=== PATIENT | male | born 1945 | race Caucasian/White ===

== ENCOUNTER 2017-06-17 17:07 | Inpatient (IN) | payer MEDICARE ==
[2017-06-17] MEDS ORDERED: Sodium Chloride 0.9% 1,000 ML IV STA ×2 (17:45→19:11)
[2017-06-17 18:09] LABS: VENOUS BLOOD GAS PCO2 40 mmHg (40-60)
[2017-06-17 18:25] LABS: BASO % 0.1 % (0.0-2.0); HEMATOCRIT 36.2 % (35.0-51.0); LYMPH # 0.7 K/uL (1.0-4.3); LYMPH % 4.7 % (20.0-40.0); MEAN CORPUSCULAR HEMOGLOBIN 30.1 pg (27.0-31.0); MEAN CORPUSCULAR HGB CONC 33.8 g/dL (33.0-37.0); MEAN PLATELET VOLUME 10.5 fl (7.2-11.7); MONO # 1.4 K/uL (0.0-0.8); MONO % 9.4 % (0.0-10.0); NEUT # 12.6 K/uL (1.8-7.0); NEUT % 85.8 % (50.0-75.0); PLATELET COUNT 130 K/uL (130-400); RED CELL DISTRIBUTION WIDTH 12.4 % (11.5-14.5); WHITE BLOOD COUNT 14.7 K/uL (4.8-10.8)
[2017-06-17] MEDS ORDERED: Azithromycin 500 MG in Sodium Chloride 0.9% 250 ML IVPB STA (18:26)
[2017-06-17] MEDS ORDERED: Insulin Regular 100 units/ml IV STA ×2 (18:26→19:04)
[2017-06-17] MEDS ORDERED: Sodium Chloride 3% for Inhalation 4 ML VIAL.NEB IH PRN (18:29)
[2017-06-17] MEDS ORDERED: Albuterol-Ipratrop 3 mg / 0.5 (3 ml) UD INH STA (18:30)
[2017-06-17 18:39] LABS: ALB/GLOB RATIO 1.2 (1.0-2.1); ALKALINE PHOSPHATASE 120 U/L (38-126); ALT/SGPT 65 U/L (21-72); AST/SGOT 68 U/L (17-59); BILIRUBIN,TOTAL 1.7 mg/dl (0.2-1.3); BLOOD UREA NITROGEN 15 mg/dl (9-20); CALCIUM 8.2 mg/dL (8.4-10.2); CARBON DIOXIDE 24 mmol/L (22-30); CHLORIDE 93 mmol/L (98-107); GFR AFRICAN-AMERICAN > 60; POTASSIUM 4.2 MMOL/L (3.6-5.0); SODIUM 131 mmol/l (132-148); TOTAL PROTEIN 7.1 G/DL (6.3-8.2)
--- NOTE | 2017-06-17 18:51 | ED PDOC ---
HPI: CCC, URI, Sore Throat Time Seen by Provider: 06/17/17 17:30 Chief Complaint (Nursing): GI Problem Chief Complaint (Provider): Coughing and Difficulty Breathing History Per: Patient History/Exam Limitations: no limitations Onset/Duration Of Symptoms: Days (2 days) Current Symptoms Are (Timing): Still Present Associated Symptoms: Fever, Vomiting Additional Complaint(s): Patient is a 72 y/o male with a past medical history of hypertension, diabetes, and hypercholesterolemia who presents to the ED complaining of coughing and difficulty breathing with associated fever for 2 days. Patient reports that the cough has been persistent today, and that he experiences difficulty breathing when coughing. He also notes coughing up phlegm and that he vomits occasionally when coughing a lot. He reports associated chest pain but denies any recent trauma or hospitalization. Patient claims he has not taken any medication for the symptoms. PCP: Dr. Bradshaw, [place] Past Medical History Reviewed: Historical Data, Nursing Documentation, Vital Signs Vital Signs: Last Vital Signs Temp 101.3 F H 06/17/17 18:15 Pulse 105 H 06/17/17 19:39 Resp 18 06/17/17 17:13 BP 127/61 06/17/17 17:13 Pulse Ox 94 L 06/17/17 19:39 - Medical History PMH: Diabetes, HTN, Hypercholesterolemia - Surgical History Surgical History: No Surg Hx - Family History Family History: States: No Known Family Hx - Social History Current smoker - smoking cessation education provided: No Alcohol: None Drugs: Denies - Home Medications Home Medications: Ambulatory Orders Medication Instructions Recorded Dicyclomine [Bentyl] 20 mg PO BID PRN 06/17/17 Glimepiride [amaRYL] 4 mg PO BID 06/17/17 Lisinopril [Zestril] 2.5 mg PO DAILY 06/17/17 MetFORMIN [glucoPHAGE] 1,000 mg PO BID 06/17/17 Simvastatin [Simvastatin] 10 mg PO DAILY 06/17/17 - Allergies Allergies/Adverse Reactions: Allergies Allergy/AdvReac Type Severity Reaction Status Date / Time No Known Allergies Allergy Verified 06/17/17 17:13 Review of Systems ROS Statement: Except As Marked, All Systems Reviewed And Found Negative Constitutional: Positive for: Fever Cardiovascular: Negative for: Chest Pain Respiratory: Positive for: Cough, Shortness of Breath Gastrointestinal: Positive for: Vomiting Physical Exam - Reviewed Nursing Documentation Reviewed: Yes Vital Signs Reviewed: Yes - Physical Exam Appears: Positive for: No Acute Distress Head Exam: Positive for: ATRAUMATIC, NORMOCEPHALIC Skin: Positive for: Normal Color, Warm, Dry Eye Exam: Positive for: Normal appearance, EOMI, PERRL ENT: Positive for: Other (Mucous membranes dry) Neck: Positive for: Normal, Painless ROM, Supple Cardiovascular/Chest: Positive for: Regular Rate, Rhythm, Tachycardia (slight). Negative for: Edema, Murmur Respiratory: Positive for: Other (Right basilar coarse breath sounds). Negative for: Wheezing, Respiratory Distress Gastrointestinal/Abdominal: Positive for: Normal Exam, Soft. Negative for: Tenderness Back: Positive for: Normal Inspection. Negative for: L CVA Tenderness, R CVA Tenderness, Vertebral Tenderness Extremity: Positive for: Normal ROM. Negative for: Pedal Edema, Deformity Neurologic/Psych: Positive for: Alert, Oriented (x3). Negative for: Motor/ Sensory Deficits - Laboratory Results Result Diagrams: 06/17/17 18:07 06/17/17 18:07 - ECG ECG Rhythm: Positive for: Normal QRS, Normal ST Segment, Sinus Rhythm, Sinus Tachycardia Rate: 105 O2 Sat by Pulse Oximetry: 94 (RA) Pulse Ox Interpretation: Normal Medical Decision Making Medical Decision Making: Time: 1743 Initial Impression: fever with cough Differential Diagnoses: Pneumonia, sepsis, bronchitis, influenza Initial Plan: --VBG Shock Panel --EKG --CMP --CBC --Chest X-Ray --Sodium Chloride 0.9% IV 1,000 mls/hr --Zofran Inj 4mg IVP --Blood culture --Urine culture --IV insertion --Influenza A B 1825 --Albuterol/Ipratropium 3ml INH --Insulin Human Regular 8 units IV --Rocephin 1gm IVPB --Zithromax 500 mg IVPB --Sputum culture --Tylenol 650 mg PO 1899 Chest X-Ray shows lower lobe infiltrate, most likely Pneumonia Blood work and labs reviewed, findings include Pneumonia, sepsis, CVA hyperglycemia 1910 Patient will be admitted to hospital for above conditions to medical service, inpatient telemetry Dr. Herrera Scribe Attestation: Documented by Romeo Prasad, acting as a scribe for Prakash Mead MD Provider Scribe Attestation: All medical record entries made by the Scribe were at my direction and personally dictated by me. I have reviewed the chart and agree that the record accurately reflects my personal performance of the history, physical exam, medical decision making, and the department course for this patient. I have also personally directed, reviewed, and agree with the discharge instructions and disposition. Disposition - Clinical Impression Clinical Impression: Pneumonia, CAP (community acquired pneumonia), Hyperglycemia, Severe sepsis - Patient ED Disposition Is Patient to be Admitted: Yes Discussed With : July Herrera Doctor Will See Patient In The: Hospital Counseled Patient/Family Regarding: Studies Performed, Diagnosis - Disposition Disposition Time: 19:07 Condition: FAIR - Pt Status Changed To: Hospital Disposition Of: Inpatient - Admit Certification Admit to Inpatient:: After my assessment, the patient will require hospitalization for at least two midnights. This is because of the severity of symptoms shown, intensity of services needed, and/or the medical risk in this patient being treated as an outpatient. - POA Present On Arrival: Poor Glycemic Control Core Measure Indicators: Pneumonia
[2017-06-17 19:03] LABS: GLUCOSE,RANDOM 445 mg/dL (75-110)
[2017-06-17] MEDS ORDERED: Insulin Regular 100 units/ml ONE (19:20)
[2017-06-17 19:28] LABS: LARGE PLATELETS PRESENT; NEUTROPHIL 79 % (42-75); TOTAL CELLS COUNTED 100
[2017-06-17] MEDS ORDERED: Albuterol 0.083% Inhal Sol (2.5 mg/3 mL) UD INH PRN (19:49)
[2017-06-17 20:24] LABS: VENOUS BLOOD GAS BASE EXCESS -2.2 mmol/L (0.0-2.0); VENOUS BLOOD GAS PCO2 41 mmHg (40-60); VENOUS BLOOD PH 7.36 (7.32-7.43)
[2017-06-17] MEDS: Sodium Chloride 0.9% 1,000 ML IV SCH (21:40)
[2017-06-17] MEDS: Insulin Regular 100 units/ml SC SCH (23:48)
[2017-06-18] MEDS ORDERED: Pneumococcal 23-Valent Vaccine IM ONE (07:00)
[2017-06-18] MEDS: Insulin Regular 100 units/ml SC SCH ×4 (07:01→22:00)
[2017-06-18 07:57] LABS: BASO # 0.1 K/uL (0.0-0.2); BASO % 0.7 % (0.0-2.0); HEMATOCRIT 32.4 % (35.0-51.0); LYMPH % 6.5 % (20.0-40.0); MEAN CELL VOLUME 89.2 fl (80.0-94.0); MEAN CORPUSCULAR HEMOGLOBIN 30.2 pg (27.0-31.0); MEAN CORPUSCULAR HGB CONC 33.9 g/dL (33.0-37.0); MEAN PLATELET VOLUME 10.4 fl (7.2-11.7); MONO # 1.3 K/uL (0.0-0.8); MONO % 8.3 % (0.0-10.0); NEUT # 12.7 K/uL (1.8-7.0); NEUT % 84.5 % (50.0-75.0); RED CELL DISTRIBUTION WIDTH 12.2 % (11.5-14.5)
[2017-06-18 07:59] LABS: ALKALINE PHOSPHATASE 97 U/L (38-126); ALT/SGPT 54 U/L (21-72); AST/SGOT 53 U/L (17-59); BILIRUBIN,TOTAL 1.2 mg/dl (0.2-1.3); BLOOD UREA NITROGEN 14 mg/dl (9-20); CALCIUM 7.7 mg/dL (8.4-10.2); CARBON DIOXIDE 26 mmol/L (22-30); CHLORIDE 100 mmol/L (98-107); GFR AFRICAN-AMERICAN > 60; GLUCOSE,RANDOM 228 mg/dL (75-110); POTASSIUM 3.9 MMOL/L (3.6-5.0); SODIUM 133 mmol/l (132-148); TOTAL PROTEIN 6.2 G/DL (6.3-8.2)
--- NOTE | 2017-06-18 08:53 | CP.PCM.HP ---
History of Present Illness - History of Present Illness History of Present Illness: A 72 year old male with history of diabetes, hypertension and elevated cholesterol was admitted for cough, sputum and high fever for the last three days. He had fever and chills. He thought that he had a cold. Sputum color was yellowish. He denies history of asthma. 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 He denies smoking. Present on Admission - Present on Admission Any Indicators Present on Admission: No History of DVT/PE: No History of Uncontrolled Diabetes: No Urinary Catheter: No Decubitus Ulcer Present: No Review of Systems - Constitutional Constitutional: absent: Anorexia, Excessive Sweating, Night Sweats, Weight Loss - EENT Eyes: absent: Change in Vision Ears: absent: Ear Discharge Nose/Mouth/Throat: Nasal Congestion - Cardiovascular Cardiovascular: absent: Chest Pain, Dyspnea - Respiratory Respiratory: Cough, Chest Congestion, Excessive Mucous Production - Gastrointestinal Gastrointestinal: absent: Vomiting (once when he coughed a lot) Past Patient History - Past Medical History & Family History Past Medical History?: Yes - Past Social History Smoking Status: Never Smoked - CARDIAC Hx Hypercholesterolemia: Yes Hx Hypertension: Yes - ENDOCRINE/METABOLIC Hx Diabetes Mellitus Type 2: Yes - MUSCULOSKELETAL/RHEUMATOLOGICAL Hx Falls: No - PSYCHIATRIC Hx Substance Use: No - SURGICAL HISTORY Hx Surgeries: No - ANESTHESIA Hx Anesthesia: Yes Hx Anesthesia Reactions: No Meds Allergies/Adverse Reactions: Allergies Allergy/AdvReac Type Severity Reaction Status Date / Time No Known Allergies Allergy Verified 06/17/17 17:13 Physical Exam - Constitutional Appears: No Acute Distress - ENT Exam ENT Exam: Mucous Membranes Moist - Respiratory Exam Respiratory Exam: Clear to Auscultation Bilateral, Rales (at left base), Wheezes - Cardiovascular Exam Cardiovascular Exam: REGULAR RHYTHM. absent: Systolic Murmur - GI/Abdominal Exam GI & Abdominal Exam: Normal Bowel Sounds, Soft. absent: Tenderness - Skin Skin Exam: Dry, Warm Results - Vital Signs Recent Vital Signs: Last Vital Signs Temp 99.5 F 06/18/17 08:00 Pulse 93 H 06/18/17 08:00 Resp 20 06/18/17 08:00 BP 113/63 06/18/17 08:00 Pulse Ox 94 L 06/18/17 08:00 - Labs Result Diagrams: 06/18/17 06:00 06/18/17 06:00 Labs: Laboratory Results - last 24 hr 06/17/17 06/17/17 06/17/17 17:45 18:07 18:07 WBC 14.7 H D RBC 4.06 L Hgb 12.2 Hct 36.2 MCV 89.0 MCH 30.1 MCHC 33.8 RDW 12.4 Plt Count 130 MPV 10.5 Neut % (Auto) 85.8 H Lymph % (Auto) 4.7 L [place] % (Auto) 9.4 Eos % (Auto) 0.0 Baso % (Auto) 0.1 Neut # 12.6 H Lymph # 0.7 L [place] # 1.4 H Eos # 0.0 Baso # 0.0 Neutrophils % (Manual) 79 H Band Neutrophils % 8 H Lymphocytes % (Manual) 5 L Monocytes % (Manual) 8 Platelet Estimate Slightly decreased L Large Platelets Present pO2 27 L VBG pH 7.40 VBG pCO2 40 VBG HCO3 24.1 VBG Total CO2 26.0 VBG O2 Sat (Calc) 65.9 H VBG Base Excess 0.0 VBG Potassium 4.2 Sodium 129.0 L 131 L Chloride 94.0 L 93 L Glucose 466 H* Lactate 2.9 H FiO2 21.0 Crit Value Called To Dr ion cornejo Crit Value Called By Amador Crit Value Read Back Y Blood Gas Notified Time 1808 Potassium 4.2 Carbon Dioxide 24 Anion Gap 18 BUN 15 Creatinine 1.1 Est GFR ( Amer) > 60 Est GFR (Non-Af Amer) > 60 POC Glucose (mg/dL) Random Glucose 445 H* Calcium 8.2 L Total Bilirubin 1.7 H AST 68 H ALT 65 Alkaline Phosphatase 120 Total Protein 7.1 Albumin 3.8 Globulin 3.3 Albumin/Globulin Ratio 1.2 Venous Blood Potassium 4.2 Influenza Typ A,B (EIA) 06/17/17 06/17/17 06/17/17 18:12 20:09 20:12 WBC RBC Hgb Hct MCV MCH MCHC RDW Plt Count MPV Neut % (Auto) Lymph % (Auto) [place] % (Auto) Eos % (Auto) Baso % (Auto) Neut # Lymph # [place] # Eos # Baso # Neutrophils % (Manual) Band Neutrophils % Lymphocytes % (Manual) Monocytes % (Manual) Platelet Estimate Large Platelets pO2 41 VBG pH 7.36 VBG pCO2 41 VBG HCO3 22.8 VBG Total CO2 24.5 VBG O2 Sat (Calc) 84.0 H VBG Base Excess -2.2 L VBG Potassium 3.5 L Sodium 132.0 Chloride 101.0 Glucose 369 H Lactate 2.9 H FiO2 21.0 Crit Value Called To Crit Value Called By Crit Value Read Back Blood Gas Notified Time Potassium Carbon Dioxide Anion Gap BUN Creatinine Est GFR ( Amer) Est GFR (Non-Af Amer) POC Glucose (mg/dL) 394 H Random Glucose Calcium Total Bilirubin AST ALT Alkaline Phosphatase Total Protein Albumin Globulin Albumin/Globulin Ratio Venous Blood Potassium 3.5 L Influenza Typ A,B (EIA) Negative for flu a/b 06/17/17 06/18/17 06/18/17 22:34 06:00 06:00 WBC 15.0 H RBC 3.63 L Hgb 11.0 L Hct 32.4 L MCV 89.2 MCH 30.2 MCHC 33.9 RDW 12.2 Plt Count 128 L MPV 10.4 Neut % (Auto) 84.5 H Lymph % (Auto) 6.5 L [place] % (Auto) 8.3 Eos % (Auto) 0.0 Baso % (Auto) 0.7 Neut # 12.7 H Lymph # 1.0 Scre[place] # 1.3 H Eos # 0.0 Baso # 0.1 Neutrophils % (Manual) Band Neutrophils % Lymphocytes % (Manual) Monocytes % (Manual) Platelet Estimate Large Platelets pO2 VBG pH VBG pCO2 VBG HCO3 VBG Total CO2 VBG O2 Sat (Calc) VBG Base Excess VBG Potassium Sodium 133 Chloride 100 Glucose Lactate FiO2 Crit Value Called To Crit Value Called By Crit Value Read Back Blood Gas Notified Time Potassium 3.9 Carbon Dioxide 26 Anion Gap 11 BUN 14 Creatinine 0.9 Est GFR ( Amer) > 60 Est GFR (Non-Af Amer) > 60 POC Glucose (mg/dL) 303 H Random Glucose 228 H Calcium 7.7 L Total Bilirubin 1.2 AST 53 ALT 54 Alkaline Phosphatase 97 Total Protein 6.2 L Albumin 3.1 L Globulin 3.1 Albumin/Globulin Ratio 1.0 Venous Blood Potassium Influenza Typ A,B (EIA) Assessment & Plan - Assessment and Plan (Free Text) Assessment: community acquired pneumonia hyperglycemia met the criteria for sepsis Plan: continue iv Rocephin and Zithromax check blood and sputum culture. diabetic control repeat CBC in AM. - Date & Time Date: 06/18/17 Time: 08:56 Decision To Admit - . Bed Request Type: Telemetry Admitting Physician: July Herrera
[2017-06-18] MEDS: GlipiZIDE 10 mg SR Tab PO SCH ×2 (09:15→17:36)
[2017-06-18] MEDS: Pravastatin Sodium 20 MG TAB PO SCH (09:19)
[2017-06-18] MEDS: Sodium Chloride 0.9% 1,000 ML IV SCH (09:21)
--- NOTE | 2017-06-18 10:40 | RAD ---
HISTORY: fever cough COMPARISON: No prior. TECHNIQUE: Chest PA and lateral FINDINGS: LUNGS: No active pulmonary disease. PLEURA: No significant pleural effusion identified. No pneumothorax apparent. CARDIOVASCULAR: Normal. OSSEOUS STRUCTURES: No significant abnormalities. VISUALIZED UPPER ABDOMEN: Normal. OTHER FINDINGS: None. IMPRESSION: No active disease.
[2017-06-18] MEDS: Azithromycin 500 MG in Sodium Chloride 0.9% 250 ML IVPB SCH (13:12)
--- NOTE | 2017-06-18 16:34 | CT ---
PROCEDURE: CT Chest without contrast HISTORY: lower lobe infiltrate COMPARISON: 06/17/2014. TECHNIQUE: Contiguous axial images were obtained through the chest without intravenous contrast enhancement. Sagittal and coronal reconstructions were performed. Radiation dose (DLP): 483.53 mGy-cm. This CT exam was performed using one or more of the following dose reduction techniques: Automated exposure control, adjustment of the mA and/or kV according to patient size, and/or use of iterative reconstruction technique. FINDINGS: LUNGS: Bilateral lower lobe infiltrates with air bronchograms consistent with lower lobe pneumonia is. The overall appearance and distribution suggests possibility of aspiration pneumonia. Additional subsegmental multifocal infiltrates anterior posterior segments of the right upper lobe. MEDIASTINUM: Unremarkable thoracic aorta. No aneurysm. Normal sized heart. Main pulmonary artery unremarkable. No vascular congestion. No lymphadenopathy. PLEURA: Trace right pleural effusion. No appreciable left pleural effusion. BONES: No fracture. No destructive lesion. UPPER ABDOMEN: Cholelithiasis without CT evidence of acute cholecystitis. Incompletely visualize gallbladder. OTHER FINDINGS: None. IMPRESSION: Primarily lower lobe infiltrates. Additional subsegmental infiltrates in the right upper lobe. Findings likely represent pneumonia.
[2017-06-19 05:27] LABS: BASO # 0.1 K/uL (0.0-0.2); BASO % 0.4 % (0.0-2.0); HEMATOCRIT 30.3 % (35.0-51.0); LYMPH % 6.3 % (20.0-40.0); MEAN CELL VOLUME 88.8 fl (80.0-94.0); MEAN CORPUSCULAR HGB CONC 33.7 g/dL (33.0-37.0); MEAN PLATELET VOLUME 10.3 fl (7.2-11.7); MONO # 1.5 K/uL (0.0-0.8); MONO % 9.5 % (0.0-10.0); NEUT % 83.8 % (50.0-75.0); RED CELL DISTRIBUTION WIDTH 12.1 % (11.5-14.5); WHITE BLOOD COUNT 15.5 K/uL (4.8-10.8)
[2017-06-19 05:41] LABS: BLOOD UREA NITROGEN 11 mg/dl (9-20); CALCIUM 7.5 mg/dL (8.4-10.2); CARBON DIOXIDE 25 mmol/L (22-30); CHLORIDE 97 mmol/L (98-107); GFR AFRICAN-AMERICAN > 60; GLUCOSE,RANDOM 281 mg/dL (75-110); SODIUM 130 mmol/l (132-148)
[2017-06-19] MEDS: Insulin Regular 100 units/ml SC SCH ×4 (06:47→23:18)
--- NOTE | 2017-06-19 07:33 | CP.PCM.PN ---
Subjective - Date & Time of Evaluation Date of Evaluation: 06/19/17 Time of Evaluation: 07:31 - Subjective Subjective: coughing got better no fever Objective - Vital Signs/Intake and Output Vital Signs (last 24 hours): Temp Pulse Resp BP Pulse Ox 98.8 F 83 18 138/81 96 06/19/17 04:59 06/19/17 04:59 06/19/17 04:59 06/19/17 04:59 06/19/17 04:59 - Medications Medications: Current Medications Acetaminophen (Tylenol 325mg Tab) 650 mg PO Q6 PRN PRN Reason: Pain, moderate (4-7) Last Admin: 06/19/17 02:30 Dose: 650 mg Albuterol Sulfate (Albuterol 0.083% Inhal Claire (2.5 Mg/3 Ml) Ud) 2.5 mg INH RQ6 PRN PRN Reason: Shortness of Breath Last Admin: 06/18/17 21:19 Dose: 2.5 mg Benzonatate (Tessalon Perles) 100 mg PO Q6 PRN PRN Reason: Cough Last Admin: 06/18/17 22:01 Dose: 100 mg Dicyclomine HCl (Bentyl) 20 mg PO BID PRN PRN Reason: Pain, moderate (4-7) Glipizide (Glucotrol Xl) 10 mg PO BIDWM [facility] Last Admin: 06/18/17 17:36 Dose: 10 mg Heparin Sodium (Porcine) (Heparin) 5,000 units SC Q12 DEEJAY PRN Reason: Protocol Last Admin: 06/18/17 22:01 Dose: 5,000 units Azithromycin 500 mg/ Sodium (Chloride) 250 mls @ 250 mls/hr IVPB DAILY DEEJAY PRN Reason: Protocol Last Admin: 06/18/17 13:12 Dose: 250 mls/hr Ceftriaxone Sodium 1 gm/ (Sodium Chloride) 100 mls @ 100 mls/hr IVPB DAILY [facility] PRN Reason: Protocol Last Admin: 06/18/17 09:20 Dose: 100 mls/hr Insulin Human Regular (Humulin R) 0 units SC ACCU-CHECK DEEJAY PRN Reason: Protocol Last Admin: 06/19/17 06:47 Dose: 4 unit Lisinopril (Zestril) 2.5 mg PO DAILY [facility] Last Admin: 06/18/17 09:15 Dose: 2.5 mg Metformin HCl (Glucophage) 1,000 mg PO BID [facility] Last Admin: 06/18/17 17:36 Dose: 1,000 mg Pravastatin Sodium (Pravachol) 20 mg PO DAILY [facility] Last Admin: 06/18/17 09:19 Dose: 20 mg - Labs Labs: 06/19/17 04:15 06/19/17 04:15 - Constitutional Appears: No Acute Distress - Respiratory Exam Respiratory Exam: Clear to Ausculation Bilateral, Rales (at right base) - Cardiovascular Exam Cardiovascular Exam: REGULAR RHYTHM. absent: Murmur - GI/Abdominal Exam GI & Abdominal Exam: Soft, Normal Bowel Sounds. absent: Tenderness Assessment and Plan - Assessment and Plan (Free Text) Assessment: bilateral lower lobe pneumonia diabetes sepsis - resolving Plan: continue intravenous antibiotics, rocephin and zithromax D/C planning check labs
[2017-06-19] MEDS: Pravastatin Sodium 20 MG TAB PO SCH (08:55)
[2017-06-19] MEDS: GlipiZIDE 10 mg SR Tab PO SCH ×2 (08:55→16:56)
[2017-06-19] MEDS: Azithromycin 500 MG in Sodium Chloride 0.9% 250 ML IVPB SCH (09:03)
--- NOTE | 2017-06-19 09:34 | CARD ---
APPROVED REPORT EKG Measurement Heart [id number] <Conclusion> Sinus tachycardia Otherwise normal ECG
[2017-06-19 11:15] VITALS: BMI 26.5
[2017-06-19] MEDS: Albuterol 0.083% Inhal Sol (2.5 mg/3 mL) UD INH SCH ×2 (15:33→19:09)
[2017-06-19] MEDS: Acetylcysteine 10% 4 ML IH SCH (19:09)
[2017-06-19] MEDS: guaiFENesin 600 mg ER Tab PO SCH (21:59)
[2017-06-20] MEDS: Albuterol 0.083% Inhal Sol (2.5 mg/3 mL) UD INH SCH ×6 (00:43→19:25)
[2017-06-20 05:30] LABS: HEMATOCRIT 31.5 % (35.0-51.0); MEAN CELL VOLUME 88.6 fl (80.0-94.0); MEAN CORPUSCULAR HEMOGLOBIN 30.1 pg (27.0-31.0); RED CELL DISTRIBUTION WIDTH 12.5 % (11.5-14.5); WHITE BLOOD COUNT 13.3 K/uL (4.8-10.8)
[2017-06-20 05:59] LABS: BLOOD UREA NITROGEN 8 mg/dl (9-20); CALCIUM 8.2 mg/dL (8.4-10.2); CARBON DIOXIDE 28 mmol/L (22-30); CHLORIDE 100 mmol/L (98-107); GFR AFRICAN-AMERICAN > 60; GLUCOSE,RANDOM 253 mg/dL (75-110); POTASSIUM 3.6 MMOL/L (3.6-5.0); SODIUM 136 mmol/l (132-148)
[2017-06-20] MEDS: Insulin Regular 100 units/ml SC SCH ×4 (06:39→22:44)
[2017-06-20] MEDS: Acetylcysteine 10% 4 ML IH SCH ×3 (07:41→19:24)
[2017-06-20] MEDS: guaiFENesin 600 mg ER Tab PO SCH ×2 (08:55→21:03)
[2017-06-20] MEDS: GlipiZIDE 10 mg SR Tab PO SCH ×2 (08:55→17:08)
[2017-06-20] MEDS: Pravastatin Sodium 20 MG TAB PO SCH (08:56)
[2017-06-20] MEDS: Azithromycin 500 MG in Sodium Chloride 0.9% 250 ML IVPB SCH (10:49)
--- NOTE | 2017-06-20 12:00 | RAD ---
HISTORY: Follow-up pneumonia. COMPARISON: June 17, 2017. TECHNIQUE: Chest PA and lateral FINDINGS: LUNGS: Progressive lower lobe infiltrates, more conspicuous right upper lobe infiltrate. PLEURA: No significant pleural effusion identified. No pneumothorax apparent. CARDIOVASCULAR: No radiographic findings to suggest acute or significant cardiovascular disease. OSSEOUS STRUCTURES: No significant abnormalities. VISUALIZED UPPER ABDOMEN: Normal. OTHER FINDINGS: None. IMPRESSION: Progressive, extensive multifocal bilateral infiltrates.
[2017-06-20] MEDS ORDERED: Sodium Chloride 3% for Inhalation 4 ML VIAL.NEB IH PRN (12:15)
--- NOTE | 2017-06-20 13:57 | CP.PCM.PN ---
Subjective - Date & Time of Evaluation Date of Evaluation: 06/20/17 Time of Evaluation: 13:55 - Subjective Subjective: continued cough with sputum no fever pain on both feet Objective - Vital Signs/Intake and Output Vital Signs (last 24 hours): Temp Pulse Resp BP Pulse Ox 99.3 F 90 18 164/76 H 98 06/20/17 12:00 06/20/17 12:00 06/20/17 12:00 06/20/17 12:00 06/20/17 12:00 - Medications Medications: Current Medications Acetaminophen (Tylenol 325mg Tab) 650 mg PO Q6 PRN PRN Reason: Pain, moderate (4-7) Last Admin: 06/19/17 22:10 Dose: 650 mg Acetylcysteine (Mucomyst 10% 4ml) 3 ml IH RTID [facility] Last Admin: 06/20/17 13:03 Dose: Not Given Albuterol Sulfate (Albuterol 0.083% Inhal Claire (2.5 Mg/3 Ml) Ud) 2.5 mg INH RQ4 DEEJAY Last Admin: 06/20/17 11:10 Dose: 2.5 mg Benzonatate (Tessalon Perles) 100 mg PO Q6 PRN PRN Reason: Cough Last Admin: 06/19/17 22:11 Dose: 100 mg Dicyclomine HCl (Bentyl) 20 mg PO BID PRN PRN Reason: Pain, moderate (4-7) Last Admin: 06/19/17 08:55 Dose: 20 mg Glipizide (Glucotrol Xl) 10 mg PO BIDWM [facility] Last Admin: 06/20/17 08:55 Dose: 10 mg Guaifenesin (Mucinex La) 600 mg PO Q12 [facility] Last Admin: 06/20/17 08:55 Dose: 600 mg Heparin Sodium (Porcine) (Heparin) 5,000 units SC Q12 DEEJAY PRN Reason: Protocol Last Admin: 06/20/17 08:56 Dose: 5,000 units Azithromycin 500 mg/ Sodium (Chloride) 250 mls @ 250 mls/hr IVPB DAILY [facility]EE[facility]AY PRN Reason: Protocol Last Admin: 06/20/17 10:49 Dose: 250 mls/hr Ceftriaxone Sodium 1 gm/ (Sodium Chloride) 100 mls @ 100 mls/hr IVPB DAILY [facility] PRN Reason: Protocol Last Admin: 11/07/17 10:49 Dose: 100 mls/hr Vancomycin HCl 1 gm/ Sodium (Chloride) 250 mls @ 166.667 mls/hr IVPB DAILY [facility] PRN Reason: Protocol Last Admin: 06/20/17 10:49 Dose: 166.667 mls/hr Insulin Human Regular (Humulin R) 0 units SC ACCU-CHECK [facility] PRN Reason: Protocol Last Admin: 06/20/17 12:07 Dose: 4 unit Lisinopril (Zestril) 2.5 mg PO DAILY [facility] Last Admin: 06/20/17 08:56 Dose: 2.5 mg Metformin HCl (Glucophage) 1,000 mg PO BID [facility] Last Admin: 06/20/17 08:55 Dose: 1,000 mg Pravastatin Sodium (Pravachol) 20 mg PO DAILY [facility] Last Admin: 06/20/17 08:56 Dose: 20 mg Promethazine HCl (Phenergan Syrup) 6.25 mg PO Q6 PRN PRN Reason: Cough - Labs Labs: 06/20/17 04:15 06/20/17 04:15 - Constitutional Appears: No Acute Distress - Neck Exam Neck Exam: Full ROM - Respiratory Exam Respiratory Exam: Rales (bilateral, more on left), NORMAL BREATHING PATTERN. absent: Wheezes - Cardiovascular Exam Cardiovascular Exam: REGULAR RHYTHM. absent: Murmur - GI/Abdominal Exam GI & Abdominal Exam: Soft, Normal Bowel Sounds. absent: Tenderness - Extremities Exam Extremities Exam: absent: Pedal Edema, Tenderness Assessment and Plan - Assessment and Plan (Free Text) Assessment: community acquired pneumonia clinically improving, no fever, decreasing leukcotyosis, less tachycardia. diabetes sputum culture - Staph Aureus Plan: pulmo and ID consult continue iv antibiotics start lantus insulin
[2017-06-20] MEDS: Promethazine 6.25 MG/5 ML CUP PO PRN (17:07)
[2017-06-20] MEDS: Clindamycin 600mg/50ml NS 600 MG/50 ML BAG IVPB SCH (17:23)
[2017-06-20] MEDS: Piperacillin/Tazobact 3.375 GM in Sodium Chloride 0.9% 100 ML IVPB SCH ×2 (17:23→22:50)
[2017-06-20] MEDS: Insulin Detemir 100 Units/ml Inj SC SCH (22:45)
[2017-06-21] MEDS: Albuterol 0.083% Inhal Sol (2.5 mg/3 mL) UD INH SCH ×6 (00:03→19:17)
[2017-06-21] MEDS: Clindamycin 600mg/50ml NS 600 MG/50 ML BAG IVPB SCH ×3 (00:40→18:44)
[2017-06-21] MEDS: Promethazine 6.25 MG/5 ML CUP PO PRN (00:41)
--- NOTE | 2017-06-21 03:25 | CON ---
INFECTIOUS DISEASE CONSULTATION DATE: HISTORY OF PRESENT ILLNESS: The patient is a 72-year-old male with history of diabetes, hypertension, and elevated cholesterol who was admitted for productive cough with high fever for three to four days prior to admission. He stated that his productive sputum was yellowish. 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 The patient has been on [facility] in room 416 bed 2 and has been receiving three antibiotics, those being ceftriaxone, vancomycin, and Zithromax. At present, afebrile, but he states he still has chills daily and still has a productive cough. PHYSICAL EXAMINATION: GENERAL: The patient is alert, cooperative and oriented to time and place, gives good history. NECK: Supple. HEART: Regular sinus rhythm. LUNGS: He has rales bilaterally, left greater than right. Also has some rhonchi at both bases, bilaterally. LABORATORY DATA: Include his creatine today was 0.8, his GFR is greater than 60. His blood sugars have all been over 200, today's being 269. Influenza type A and B EIAs were negative. White count on admission was 14.7 which is on 06/17/2017, went up to 15 on 06/18/2017 and 15.5 on 06/19/2017, today it is 13.3. His hemoglobin is 10.7 which is low and his polys are 83%, platelets are 175, they had one of 128 also. The patient's chest x-ray today which is 06/20/2017 states that progressive extensive multifocal bilateral infiltrates. His chest CT from 06/18/2017 states primarily lower lobe infiltrates, additional subsegmental infiltrates in the right upper lobe. Findings may represent pneumonia, but as noted in the chest x-ray, things have progressed negatively. IMPRESSION: He has a bilateral pneumonia. I have discontinued the vancomycin and the ceftriaxone, have started clindamycin 600 mg IV piggyback q. 8, and this will also cover the Staphylococcus aureus that was grown in the sputum and put him on Zosyn 3.375 g IV piggyback q. 8 also. He also has hypertension, needs better control of his diabetes. Mike Shah MD [id number]
[2017-06-21 05:41] LABS: BASO # 0.1 K/uL (0.0-0.2); BASO % 1.1 % (0.0-2.0); EOS # 0.1 K/uL (0.0-0.7); EOS % 1.1 % (0.0-4.0); HEMATOCRIT 30.2 % (35.0-51.0); LYMPH % 7.3 % (20.0-40.0); MEAN CELL VOLUME 87.7 fl (80.0-94.0); MEAN CORPUSCULAR HEMOGLOBIN 30.6 pg (27.0-31.0); MEAN CORPUSCULAR HGB CONC 34.9 g/dL (33.0-37.0); MEAN PLATELET VOLUME 10.2 fl (7.2-11.7); MONO # 1.9 K/uL (0.0-0.8); MONO % 14.3 % (0.0-10.0); NEUT % 76.2 % (50.0-75.0); NRBC % 0.1 % (0.0-0.0); PLATELET COUNT 224 K/uL (130-400); RED CELL DISTRIBUTION WIDTH 12.3 % (11.5-14.5); WHITE BLOOD COUNT 13.1 K/uL (4.8-10.8)
[2017-06-21 06:30] LABS: ALB/GLOB RATIO 0.9 (1.0-2.1); ALKALINE PHOSPHATASE 200 U/L (38-126); ALT/SGPT 71 U/L (21-72); AST/SGOT 76 U/L (17-59); BILIRUBIN,TOTAL 1.1 mg/dl (0.2-1.3); BLOOD UREA NITROGEN 7 mg/dl (9-20); CALCIUM 8.1 mg/dL (8.4-10.2); CARBON DIOXIDE 27 mmol/L (22-30); CHLORIDE 100 mmol/L (98-107); GFR AFRICAN-AMERICAN > 60; GLUCOSE,RANDOM 132 mg/dL (75-110); POTASSIUM 3.5 MMOL/L (3.6-5.0); SODIUM 136 mmol/l (132-148); TOTAL PROTEIN 6.5 G/DL (6.3-8.2)
[2017-06-21] MEDS: Insulin Regular 100 units/ml SC SCH ×4 (06:50→22:17)
[2017-06-21] MEDS: Acetylcysteine 10% 4 ML IH SCH ×3 (07:49→19:18)
--- NOTE | 2017-06-21 07:57 | CP.PCM.PN ---
Subjective - Date & Time of Evaluation Date of Evaluation: 06/21/17 Time of Evaluation: 07:55 - Subjective Subjective: cough continues Objective - Vital Signs/Intake and Output Vital Signs (last 24 hours): Temp Pulse Resp BP Pulse Ox 99.1 F 90 18 134/76 94 L 06/21/17 05:00 06/21/17 05:00 06/21/17 05:00 06/21/17 05:00 06/21/17 05:00 - Medications Medications: Current Medications Acetaminophen (Tylenol 325mg Tab) 650 mg PO Q6 PRN PRN Reason: Pain, moderate (4-7) Last Admin: 06/19/17 22:10 Dose: 650 mg Acetylcysteine (Mucomyst 10% 4ml) 3 ml IH RTID [facility] Last Admin: 06/21/17 07:49 Dose: 3 ml Albuterol Sulfate (Albuterol 0.083% Inhal Claire (2.5 Mg/3 Ml) Ud) 2.5 mg INH RQ4 [facility] Last Admin: 06/21/17 07:49 Dose: 2.5 mg Benzonatate (Tessalon Perles) 100 mg PO Q6 PRN PRN Reason: Cough Last Admin: 06/19/17 22:11 Dose: 100 mg Dicyclomine HCl (Bentyl) 20 mg PO BID PRN PRN Reason: Pain, moderate (4-7) Last Admin: 06/19/17 08:55 Dose: 20 mg Glipizide (Glucotrol Xl) 10 mg PO BIDWM [facility] Last Admin: 06/20/17 17:08 Dose: 10 mg Guaifenesin (Mucinex La) 600 mg PO Q12 [facility] Last Admin: 06/20/17 21:03 Dose: 600 mg Heparin Sodium (Porcine) (Heparin) 5,000 units SC Q12 [facility] PRN Reason: Protocol Last Admin: 06/20/17 21:02 Dose: 5,000 units Azithromycin 500 mg/ Sodium (Chloride) 250 mls @ 250 mls/hr IVPB DAILY [facility] PRN Reason: Protocol Last Admin: 06/20/17 10:49 Dose: 250 mls/hr Clindamycin Phosphate (Cleocin In Normal Saline) 600 mg in 50 mls @ 50 mls/hr IVPB Q8 [facility] PRN Reason: Protocol Last Admin: 06/21/17 00:40 Dose: 50 mls/hr Piperacillin Sod/Tazobactam (Sod 3.375 gm/ Sodium Chloride) 100 mls @ 100 mls/ hr IVPB Q8H [facility] PRN Reason: Protocol Last Admin: 06/20/17 22:50 Dose: 100 mls/hr Insulin Detemir (Levemir) 10 units SC HS [facility] Last Admin: 06/20/17 22:45 Dose: 10 u Insulin Human Regular (Humulin R) 0 units SC ACCU-CHECK [facility] PRN Reason: Protocol Last Admin: 06/21/17 06:50 Dose: Not Given Lisinopril (Zestril) 2.5 mg PO DAILY [facility] Last Admin: 06/20/17 08:56 Dose: 2.5 mg Metformin HCl (Glucophage) 1,000 mg PO BID [facility] Last Admin: 06/20/17 17:07 Dose: 1,000 mg Pravastatin Sodium (Pravachol) 20 mg PO DAILY [facility] Last Admin: 06/20/17 08:56 Dose: 20 mg Promethazine HCl (Phenergan Syrup) 6.25 mg PO Q6 PRN PRN Reason: Cough Last Admin: 06/21/17 00:41 Dose: 6.25 mg - Labs Labs: 06/21/17 04:00 06/21/17 06:10 - Constitutional Appears: No Acute Distress - Respiratory Exam Respiratory Exam: Rales (at both bases). absent: Wheezes - Cardiovascular Exam Cardiovascular Exam: REGULAR RHYTHM. absent: Murmur - Extremities Exam Extremities Exam: absent: Pedal Edema Assessment and Plan - Assessment and Plan (Free Text) Assessment: bilateral lower lobe pneumonia hypertension diabetes as per ID, antibiotics were changed to clindamycin and zosyn Plan: continue iv antibiotics respiratory treatment DM and BP control
[2017-06-21 09:14] LABS: EOSINOPHIL 1 % (0-7); NEUTROPHIL 69 % (42-75); TOTAL CELLS COUNTED 100
[2017-06-21] MEDS: guaiFENesin 600 mg ER Tab PO SCH ×2 (09:26→22:07)
[2017-06-21] MEDS: GlipiZIDE 10 mg SR Tab PO SCH ×2 (09:27→16:39)
[2017-06-21] MEDS: Pravastatin Sodium 20 MG TAB PO SCH (09:27)
[2017-06-21] MEDS: Piperacillin/Tazobact 3.375 GM in Sodium Chloride 0.9% 100 ML IVPB SCH ×3 (09:29→23:22)
[2017-06-21] MEDS: Potassium Chloride 20 mEq ER Tab PO SCH ×2 (10:24→22:07)
[2017-06-21] MEDS: Azithromycin 500 MG in Sodium Chloride 0.9% 250 ML IVPB SCH (10:52)
--- NOTE | 2017-06-21 15:46 | CP.PCM.CON ---
History of Present Illness - History of Present Illness History of Present Illness: Pulmonary consult for PNA. 72 y/o M, brought to ER [facility] on 06/17/17 for evaluation of persistent cough for 3 days [employer] with scanty yellowish phlegms associated to moderate SOB with difficulty breathing and no relief, also fever and chills. In ER TMAX 101.2. vomited once with coughing Worsening symptom: CT Chest showed BLL PNA and RUL PNA Aggravated factor: Pt not taking any medication for symptoms. Pt denied: Hx of Asthma, Bloody cough, nausea, diarrhea, abdominal pain, urinary symptoms, dizziness, syncope, CP, palpitations, sick contact, recent travel. PMHx: HTN, DMII, High cholesterol. Review of Systems - Constitutional Constitutional: Chills, Fever - EENT Eyes: Other (negative) Ears: Other (negative) Nose/Mouth/Throat: Other (negative) - Cardiovascular Cardiovascular: Rapid Heart Rate - Respiratory Respiratory: Cough, Dyspnea, Chest Congestion, Change in Mucous Color, Pain with Coughing - Gastrointestinal Gastrointestinal: Vomiting - Genitourinary Genitourinary: Other (negative) - Musculoskeletal Musculoskeletal: Other (negative) - Integumentary Integumentary: Other (negative) - Neurological Neurological: Other (negative) - Psychiatric Psychiatric: Other (negative) - Endocrine Endocrine: Other (negative) - Hematologic/Lymphatic Hematologic: Other (negative) Past Patient History - Past Medical History & Family History Past Medical History?: Yes Pertinent Family History: Unknown - Past Social History Smoking Status: Never Smoked Alcohol: None Drugs: Denies Home Situation {Lives}: With Family - CARDIAC Hx Cardiac Disorders: Yes Hx Hypercholesterolemia: Yes Hx Hypertension: Yes - PULMONARY Hx Respiratory Disorders: No - NEUROLOGICAL Hx Neurological Disorder: No - HEENT Hx HEENT Problems: No - RENAL Hx Chronic Kidney Disease: No - ENDOCRINE/METABOLIC Hx Endocrine Disorders: Yes Hx Diabetes Mellitus Type 2: Yes - HEMATOLOGICAL/ONCOLOGICAL Hx Blood Disorders: No - INTEGUMENTARY Hx Dermatological Problems: No - MUSCULOSKELETAL/RHEUMATOLOGICAL Hx Musculoskeletal Disorders: No Hx Falls: No - GASTROINTESTINAL Hx Gastrointestinal Disorders: No - GENITOURINARY/GYNECOLOGICAL Hx Genitourinary Disorders: No - PSYCHIATRIC Hx Psychophysiologic Disorder: No Hx Substance Use: No - SURGICAL HISTORY Hx Surgeries: No - ANESTHESIA Hx Anesthesia: Yes Hx Anesthesia Reactions: No Meds Home Medications: Home Medication List Medication Instructions Recorded Confirmed Type Glycopyrrolate/Formoterol Fum 10.7 gm IH BID #1 [email or web address] 06/28/17 Rx [Bevespi Aerosphere Inhaler] Linezolid [Zyvox] 600 mg PO Q12 #10 tab 06/28/17 Rx Promethazine/Codeine 10 ml PO Q8 #14 udc 06/28/17 Rx [Phenergan/Codeine Oral Syrup] guaiFENesin [Mucinex LA] 600 mg PO Q12 #14 tab 06/28/17 Rx Allergies/Adverse Reactions: Allergies Allergy/AdvReac Type Severity Reaction Status Date / Time No Known Allergies Allergy Verified 06/17/17 17:13 - Medications Medications: Current Medications Acetaminophen (Tylenol 325mg Tab) 650 mg PO Q6 PRN PRN Reason: Pain, moderate (4-7) Last Admin: 06/19/17 22:10 Dose: 650 mg Acetylcysteine (Mucomyst 10% 4ml) 3 ml IH RTID [facility] Last Admin: 06/21/17 13:05 Dose: 3 ml Albuterol Sulfate (Albuterol 0.083% Inhal Claire (2.5 Mg/3 Ml) Ud) 2.5 mg INH RQ4 [facility] Last Admin: 06/21/17 13:05 Dose: 2.5 mg Benzonatate (Tessalon Perles) 100 mg PO Q6 PRN PRN Reason: Cough Last Admin: 06/19/17 22:11 Dose: 100 mg Dicyclomine HCl (Bentyl) 20 mg PO BID PRN PRN Reason: Pain, moderate (4-7) Last Admin: 06/19/17 08:55 Dose: 20 mg Glipizide (Glucotrol Xl) 10 mg PO BIDWM [facility] Last Admin: 06/21/17 09:27 Dose: 10 mg Guaifenesin (Mucinex La) 600 mg PO Q12 [facility] Last Admin: 06/21/17 09:26 Dose: 600 mg Heparin Sodium (Porcine) (Heparin) 5,000 units SC Q12 [facility] PRN Reason: Protocol Last Admin: 06/21/17 09:26 Dose: 5,000 units Azithromycin 500 mg/ Sodium (Chloride) 250 mls @ 250 mls/hr IVPB DAILY [facility] PRN Reason: Protocol Last Admin: 06/21/17 10:52 Dose: 250 mls/hr Clindamycin Phosphate (Cleocin In Normal Saline) 600 mg in 50 mls @ 50 mls/hr IVPB Q8 [facility] PRN Reason: Protocol Last Admin: 06/21/17 11:56 Dose: 50 mls/hr Piperacillin Sod/Tazobactam (Sod 3.375 gm/ Sodium Chloride) 100 mls @ 100 mls/ hr IVPB Q8H [facility] PRN Reason: Protocol Last Admin: 06/21/17 09:29 Dose: 100 mls/hr Insulin Detemir (Levemir) 10 units SC [facility] Last Admin: 06/20/17 22:45 Dose: 10 u Insulin Human Regular (Humulin R) 0 units SC ACCU-CHECK [facility] PRN Reason: Protocol Last Admin: 06/21/17 12:50 Dose: 3 unit Lisinopril (Zestril) 2.5 mg PO DAILY [facility] Last Admin: 06/21/17 09:28 Dose: 2.5 mg Metformin HCl (Glucophage) 1,000 mg PO BID [facility] Last Admin: 06/21/17 09:26 Dose: 1,000 mg Potassium Chloride (K-Dur 20 Meq Er Tab) 20 meq PO BID [facility] Last Admin: 06/21/17 10:24 Dose: 20 meq Pravastatin Sodium (Pravachol) 20 mg PO DAILY [facility] Last Admin: 06/21/17 09:27 Dose: 20 mg Promethazine HCl (Phenergan Syrup) 6.25 mg PO Q6 PRN PRN Reason: Cough Last Admin: 06/21/17 00:41 Dose: 6.25 mg Physical Exam - Constitutional Appears: No Acute Distress - Head Exam Head Exam: NORMAL INSPECTION - Eye Exam Eye Exam: PERRL - ENT Exam ENT Exam: Normal Exam - Neck Exam Neck exam: Positive for: Normal Inspection - Respiratory Exam Respiratory Exam: Decreased Breath Sounds (at bases) - Cardiovascular Exam Cardiovascular Exam: REGULAR RHYTHM - GI/Abdominal Exam GI & Abdominal Exam: Normal Bowel Sounds, Soft - Extremities Exam Extremities exam: Positive for: normal inspection - Back Exam Back exam: NORMAL INSPECTION - Neurological Exam Neurological exam: Alert, Oriented x3 Additional comments: No motor sensory deficit - Psychiatric Exam Psychiatric exam: Normal Mood - Skin Skin Exam: Warm Results - Vital Signs Recent Vital Signs: Last Vital Signs Temp 98.5 F 06/21/17 12:25 Pulse 86 06/21/17 12:25 Resp 18 06/21/17 12:25 BP 142/72 06/21/17 12:25 Pulse Ox 95 06/21/17 12:25 reviewed [place] - Labs Result Diagrams: 06/27/17 04:25 06/27/17 04:25 Labs: Laboratory Results - last 24 hr 06/20/17 06/20/17 06/20/17 10:59 16:23 21:29 WBC RBC Hgb Hct MCV MCH MCHC RDW Plt Count MPV Neut % (Auto) Lymph % (Auto) [place] % (Auto) Eos % (Auto) Baso % (Auto) Neut # Lymph # [place] # Eos # Baso # Neutrophils % (Manual) Lymphocytes % (Manual) Monocytes % (Manual) Eosinophils % (Manual) Toxic Granulation Platelet Estimate Sodium Potassium Chloride Carbon Dioxide Anion Gap BUN Creatinine Est GFR ( Amer) Est GFR (Non-Af Amer) POC Glucose (mg/dL) 281 H 222 H 220 H Random Glucose Calcium Total Bilirubin AST ALT Alkaline Phosphatase Total Protein Albumin Globulin Albumin/Globulin Ratio 06/21/17 06/21/17 06/21/17 04:00 06:07 06:10 WBC 13.1 H RBC 3.44 L Hgb 10.5 L Hct 30.2 L MCV 87.7 MCH 30.6 MCHC 34.9 RDW 12.3 Plt Count 224 MPV 10.2 Neut % (Auto) 76.2 H Lymph % (Auto) 7.3 L [place] % (Auto) 14.3 H Eos % (Auto) 1.1 Baso % (Auto) 1.1 Neut # 10.0 H Lymph # 1.0 [place] # 1.9 H Eos # 0.1 Baso # 0.1 Neutrophils % (Manual) 69 Lymphocytes % (Manual) 9 L Monocytes % (Manual) 21 H Eosinophils % (Manual) 1 Toxic Granulation Present Platelet Estimate Normal Sodium 136 Potassium 3.5 L Chloride 100 Carbon Dioxide 27 Anion Gap 13 BUN 7 L Creatinine 0.8 Est GFR ( Amer) > 60 Est GFR (Non-Af Amer) > 60 POC Glucose (mg/dL) 131 H Random Glucose 132 H Calcium 8.1 L Total Bilirubin 1.1 AST 76 H D ALT 71 Alkaline Phosphatase 200 H D Total Protein 6.5 Albumin 3.1 L Globulin 3.4 Albumin/Globulin Ratio 0.9 L 11/08/17 11:32 WBC RBC Hgb Hct MCV MCH MCHC RDW Plt Count MPV Neut % (Auto) Lymph % (Auto) [place] % (Auto) Eos % (Auto) Baso % (Auto) Neut # Lymph # [place] # Eos # Baso # Neutrophils % (Manual) Lymphocytes % (Manual) Monocytes % (Manual) Eosinophils % (Manual) Toxic Granulation Platelet Estimate Sodium Potassium Chloride Carbon Dioxide Anion Gap BUN Creatinine Est GFR ( Amer) Est GFR (Non-Af Amer) POC Glucose (mg/dL) 221 H Random Glucose Calcium Total Bilirubin AST ALT Alkaline Phosphatase Total Protein Albumin Globulin Albumin/Globulin Ratio reviewed J.P. - EKG Data EKG comments: reviewed J.P. - Imaging and Cardiology Chest x-ray Status: Report reviewed by me ([place]) CT scan - chest Status: Report reviewed by me ([place]) Assessment & Plan (1) CAP (community acquired pneumonia) Status: Acute Priority: High Comment: Lower Lobes and RUL. (2) Sepsis Status: Acute Priority: High - Assessment and Plan (Free Text) Plan: Continue Zithromax, Clinda, Zosyn, Phenergan, Mucinex, Albuterol, Mucomyst. - Date & Time Date: 06/21/17 Time: 10:00
[2017-06-21] MEDS: Insulin Detemir 100 Units/ml Inj SC SCH (22:12)
[2017-06-22] MEDS: Albuterol 0.083% Inhal Sol (2.5 mg/3 mL) UD INH SCH ×7 (00:15→23:31)
[2017-06-22] MEDS: Clindamycin 600mg/50ml NS 600 MG/50 ML BAG IVPB SCH ×3 (01:28→18:30)
[2017-06-22 05:53] LABS: HEMATOCRIT 29.9 % (35.0-51.0); MEAN CELL VOLUME 87.9 fl (80.0-94.0); MEAN CORPUSCULAR HEMOGLOBIN 30.9 pg (27.0-31.0); MEAN CORPUSCULAR HGB CONC 35.1 g/dL (33.0-37.0); RED CELL DISTRIBUTION WIDTH 12.7 % (11.5-14.5); WHITE BLOOD COUNT 10.7 K/uL (4.8-10.8)
[2017-06-22 05:58] LABS: BLOOD UREA NITROGEN 8 mg/dl (9-20); CALCIUM 8.7 mg/dL (8.4-10.2); CARBON DIOXIDE 28 mmol/L (22-30); CHLORIDE 101 mmol/L (98-107); GFR AFRICAN-AMERICAN > 60; GLUCOSE,RANDOM 88 mg/dL (75-110); POTASSIUM 3.9 MMOL/L (3.6-5.0); SODIUM 139 mmol/l (132-148)
[2017-06-22] MEDS: Insulin Regular 100 units/ml SC SCH ×4 (06:01→23:25)
--- NOTE | 2017-06-22 07:50 | CP.PCM.PN ---
Subjective - Date & Time of Evaluation Date of Evaluation: 06/22/17 Time of Evaluation: 07:48 - Subjective Subjective: still coughing with sputum no dyspnea yesterday night fever of 100.1, a set of blood culture was sent. Objective - Vital Signs/Intake and Output Vital Signs (last 24 hours): Temp Pulse Resp BP Pulse Ox 99 F 81 18 153/76 H 94 L 06/22/17 04:54 06/22/17 04:54 06/22/17 04:54 06/22/17 04:54 06/22/17 04:54 Intake and Output: 06/22/17 06/22/17 06:59 18:59 Output Total 500 Balance -500 - Medications Medications: Current Medications Acetaminophen (Tylenol 325mg Tab) 650 mg PO Q6 PRN PRN Reason: Pain, moderate (4-7) Last Admin: 06/19/17 22:10 Dose: 650 mg Acetaminophen (Tylenol 325mg Tab) 325 mg PO Q6 PRN PRN Reason: temp 100.4 and above Acetylcysteine (Mucomyst 10% 4ml) 3 ml IH RTID [facility] Last Admin: 06/21/17 19:18 Dose: 3 ml Albuterol Sulfate (Albuterol 0.083% Inhal Claire (2.5 Mg/3 Ml) Ud) 2.5 mg INH RQ4 [facility] Last Admin: 06/22/17 04:50 Dose: 2.5 mg Benzonatate (Tessalon Perles) 100 mg PO Q6 PRN PRN Reason: Cough Last Admin: 06/19/17 22:11 Dose: 100 mg Dicyclomine HCl (Bentyl) 20 mg PO BID PRN PRN Reason: Pain, moderate (4-7) Last Admin: 06/19/17 08:55 Dose: 20 mg Glipizide (Glucotrol Xl) 10 mg PO BIDWM [facility] Last Admin: 06/21/17 16:39 Dose: 10 mg Guaifenesin (Mucinex La) 600 mg PO Q12 [facility] Last Admin: 06/21/17 22:07 Dose: 600 mg Heparin Sodium (Porcine) (Heparin) 5,000 units SC Q12 [facility] PRN Reason: Protocol Last Admin: 06/21/17 22:15 Dose: 5,000 units Azithromycin 500 mg/ Sodium (Chloride) 250 mls @ 250 mls/hr IVPB DAILY [facility] PRN Reason: Protocol Last Admin: 06/21/17 10:52 Dose: 250 mls/hr Clindamycin Phosphate (Cleocin In Normal Saline) 600 mg in 50 mls @ 50 mls/hr IVPB Q8 [facility] PRN Reason: Protocol Last Admin: 06/22/17 01:28 Dose: 50 mls/hr Piperacillin Sod/Tazobactam (Sod 3.375 gm/ Sodium Chloride) 100 mls @ 100 mls/ hr IVPB Q8H [facility] PRN Reason: Protocol Last Admin: 06/21/17 23:22 Dose: 100 mls/hr Insulin Detemir (Levemir) 10 units SC HS [facility] Last Admin: 06/21/17 22:12 Dose: 10 units Insulin Human Regular (Humulin R) 0 units SC ACCU-CHECK [facility] PRN Reason: Protocol Last Admin: 06/22/17 06:01 Dose: Not Given Lisinopril (Zestril) 2.5 mg PO DAILY [facility] Last Admin: 06/21/17 09:28 Dose: 2.5 mg Metformin HCl (Glucophage) 1,000 mg PO BID [facility] Last Admin: 06/21/17 16:39 Dose: 1,000 mg Potassium Chloride (K-Dur 20 Meq Er Tab) 20 meq PO BID [facility] Last Admin: 06/21/17 22:07 Dose: 20 meq Pravastatin Sodium (Pravachol) 20 mg PO DAILY [facility] Last Admin: 06/21/17 09:27 Dose: 20 mg Promethazine HCl (Phenergan Syrup) 6.25 mg PO Q6 PRN PRN Reason: Cough Last Admin: 06/21/17 00:41 Dose: 6.25 mg - Labs Labs: 06/22/17 04:20 06/22/17 04:20 - Constitutional Appears: No Acute Distress - Respiratory Exam Respiratory Exam: Rales (bilateral), NORMAL BREATHING PATTERN - Cardiovascular Exam Cardiovascular Exam: REGULAR RHYTHM. absent: Murmur - GI/Abdominal Exam GI & Abdominal Exam: Soft, Normal Bowel Sounds. absent: Tenderness Assessment and Plan - Assessment and Plan (Free Text) Assessment: CAP, acute, bilateral lower lobes, RUL history of diabetes improving clinical status decreasing leukocytosis Plan: as per pulmonology and ID input continue iv zosyn, zithromax, clindamycin respiratory treatment chest PT
[2017-06-22] MEDS: Acetylcysteine 10% 4 ML IH SCH ×4 (08:10→19:38)
[2017-06-22] MEDS: Piperacillin/Tazobact 3.375 GM in Sodium Chloride 0.9% 100 ML IVPB SCH ×3 (09:36→23:20)
[2017-06-22] MEDS: Pravastatin Sodium 20 MG TAB PO SCH (09:38)
[2017-06-22] MEDS: guaiFENesin 600 mg ER Tab PO SCH ×2 (09:38→21:42)
[2017-06-22] MEDS: GlipiZIDE 10 mg SR Tab PO SCH ×2 (09:39→18:31)
[2017-06-22] MEDS: Potassium Chloride 20 mEq ER Tab PO SCH ×2 (09:39→18:31)
[2017-06-22] MEDS: Azithromycin 500 MG in Sodium Chloride 0.9% 250 ML IVPB SCH (11:27)
[2017-06-22] MEDS: Promethazine 6.25 MG/5 ML CUP PO PRN ×2 (12:30→21:46)
--- NOTE | 2017-06-22 15:13 | CP.PCM.PN ---
Subjective - Date & Time of Evaluation Date of Evaluation: 06/22/17 Time of Evaluation: 11:50 - Subjective Subjective: F/U CAP Pt having cough with yellowing phlegms, minimal chest congestion. Objective - Vital Signs/Intake and Output Vital Signs (last 24 hours): Temp Pulse Resp BP Pulse Ox 98.7 F 90 20 124/74 96 06/22/17 12:41 06/22/17 12:41 06/22/17 12:41 06/22/17 12:41 06/22/17 12:41 Intake and Output: 06/22/17 06/22/17 06:59 18:59 Output Total 500 Balance -500 - Medications Medications: Current Medications Acetaminophen (Tylenol 325mg Tab) 650 mg PO Q6 PRN PRN Reason: Pain, moderate (4-7) Last Admin: 06/19/17 22:10 Dose: 650 mg Acetaminophen (Tylenol 325mg Tab) 325 mg PO Q6 PRN PRN Reason: temp 100.4 and above Acetylcysteine (Mucomyst 10% 4ml) 3 ml IH RTID [facility] Last Admin: 06/22/17 13:38 Dose: 3 ml Albuterol Sulfate (Albuterol 0.083% Inhal Claire (2.5 Mg/3 Ml) Ud) 2.5 mg INH RQ4 [facility] Last Admin: 06/22/17 13:37 Dose: 2.5 mg Benzonatate (Tessalon Perles) 100 mg PO Q6 PRN PRN Reason: Cough Last Admin: 06/19/17 22:11 Dose: 100 mg Dicyclomine HCl (Bentyl) 20 mg PO BID PRN PRN Reason: Pain, moderate (4-7) Last Admin: 06/19/17 08:55 Dose: 20 mg Glipizide (Glucotrol Xl) 10 mg PO BIDWM [facility] Last Admin: 06/22/17 09:39 Dose: 10 mg Guaifenesin (Mucinex La) 600 mg PO Q12 [facility] Last Admin: 06/22/17 09:38 Dose: 600 mg Heparin Sodium (Porcine) (Heparin) 5,000 units SC Q12 [facility] PRN Reason: Protocol Last Admin: 06/22/17 09:40 Dose: 5,000 units Azithromycin 500 mg/ Sodium (Chloride) 250 mls @ 250 mls/hr IVPB DAILY [facility] PRN Reason: Protocol Last Admin: 06/22/17 11:27 Dose: 250 mls/hr Piperacillin Sod/Tazobactam (Sod 3.375 gm/ Sodium Chloride) 100 mls @ 100 mls/ hr IVPB Q8H [facility] PRN Reason: Protocol Last Admin: 06/22/17 15:03 Dose: 100 mls/hr Clindamycin Phosphate (Cleocin In Normal Saline) 600 mg in 50 mls @ 50 mls/hr IVPB Q8 [facility] PRN Reason: Protocol Last Admin: 06/22/17 12:29 Dose: 50 mls/hr Insulin Detemir (Levemir) 10 units SC HS [facility] Last Admin: 06/21/17 22:12 Dose: 10 units Insulin Human Regular (Humulin R) 0 units SC ACCU-CHECK [facility] PRN Reason: Protocol Last Admin: 06/22/17 12:30 Dose: 4 unit Lisinopril (Zestril) 2.5 mg PO DAILY [facility] Last Admin: 06/22/17 09:39 Dose: 2.5 mg Metformin HCl (Glucophage) 1,000 mg PO BID [facility] Last Admin: 06/22/17 09:38 Dose: 1,000 mg Potassium Chloride (K-Dur 20 Meq Er Tab) 20 meq PO BID [facility] Last Admin: 06/22/17 09:39 Dose: 20 meq Pravastatin Sodium (Pravachol) 20 mg PO DAILY [facility] Last Admin: 06/22/17 09:38 Dose: 20 mg Promethazine HCl (Phenergan Syrup) 6.25 mg PO Q6 PRN PRN Reason: Cough Last Admin: 06/22/17 12:30 Dose: 6.25 mg - Labs Labs: 06/22/17 04:20 06/22/17 04:20 - Constitutional Appears: No Acute Distress - Head Exam Head Exam: NORMAL INSPECTION - Eye Exam Eye Exam: PERRL - ENT Exam ENT Exam: Normal Exam - Neck Exam Neck Exam: Normal Inspection - Respiratory Exam Respiratory Exam: Decreased Breath Sounds (at bases), Rales (crackles few at bases) - Cardiovascular Exam Cardiovascular Exam: REGULAR RHYTHM - GI/Abdominal Exam GI & Abdominal Exam: Soft, Normal Bowel Sounds - Extremities Exam Extremities Exam: Normal Inspection - Back Exam Back Exam: NORMAL INSPECTION - Neurological Exam Neurological Exam: Alert, Oriented x3. absent: Motor Sensory Deficit - Psychiatric Exam Psychiatric exam: Normal Mood - Skin Skin Exam: Warm Assessment and Plan (1) CAP (community acquired pneumonia) Status: Acute (2) Sepsis Status: Acute - Assessment and Plan (Free Text) Plan: Continue Zithromax, Zosyn and rets of Tx.
[2017-06-22] MEDS: Insulin Detemir 100 Units/ml Inj SC SCH (23:00)
[2017-06-23] MEDS: Clindamycin 600mg/50ml NS 600 MG/50 ML BAG IVPB SCH ×2 (00:49→09:56)
[2017-06-23] MEDS: Albuterol 0.083% Inhal Sol (2.5 mg/3 mL) UD INH SCH ×6 (04:30→19:54)
[2017-06-23] MEDS: Insulin Regular 100 units/ml SC SCH ×4 (06:58→22:11)
--- NOTE | 2017-06-23 07:37 | CP.PCM.PN ---
Subjective - Date & Time of Evaluation Date of Evaluation: 06/23/17 Time of Evaluation: 07:35 - Subjective Subjective: coughing with sputum no fever Objective - Vital Signs/Intake and Output Vital Signs (last 24 hours): Temp Pulse Resp BP Pulse Ox 97.8 F 83 20 132/74 94 L 06/23/17 05:22 06/23/17 05:22 06/23/17 05:22 06/23/17 05:22 06/23/17 05:22 - Medications Medications: Current Medications Acetaminophen (Tylenol 325mg Tab) 650 mg PO Q6 PRN PRN Reason: Pain, moderate (4-7) Last Admin: 06/19/17 22:10 Dose: 650 mg Acetaminophen (Tylenol 325mg Tab) 325 mg PO Q6 PRN PRN Reason: temp 100.4 and above Acetylcysteine (Mucomyst 10% 4ml) 3 ml IH RTID [facility] Last Admin: 06/22/17 19:38 Dose: 3 ml Albuterol Sulfate (Albuterol 0.083% Inhal Claire (2.5 Mg/3 Ml) Ud) 2.5 mg INH RQ4 [facility] Last Admin: 06/23/17 04:30 Dose: 2.5 mg Benzonatate (Tessalon Perles) 100 mg PO Q6 PRN PRN Reason: Cough Last Admin: 06/19/17 22:11 Dose: 100 mg Dicyclomine HCl (Bentyl) 20 mg PO BID PRN PRN Reason: Pain, moderate (4-7) Last Admin: 06/19/17 08:55 Dose: 20 mg Glipizide (Glucotrol Xl) 10 mg PO BIDWM [facility] Last Admin: 06/22/17 18:31 Dose: 10 mg Guaifenesin (Mucinex La) 600 mg PO Q12 [facility] Last Admin: 06/22/17 21:42 Dose: 600 mg Heparin Sodium (Porcine) (Heparin) 5,000 units SC Q12 [facility] PRN Reason: Protocol Last Admin: 06/22/17 21:41 Dose: 5,000 units Azithromycin 500 mg/ Sodium (Chloride) 250 mls @ 250 mls/hr IVPB DAILY [facility] PRN Reason: Protocol Last Admin: 06/22/17 11:27 Dose: 250 mls/hr Piperacillin Sod/Tazobactam (Sod 3.375 gm/ Sodium Chloride) 100 mls @ 100 mls/ hr IVPB Q8H [facility] PRN Reason: Protocol Last Admin: 06/22/17 23:20 Dose: 100 mls/hr Clindamycin Phosphate (Cleocin In Normal Saline) 600 mg in 50 mls @ 50 mls/hr IVPB Q8 [facility] PRN Reason: Protocol Last Admin: 06/23/17 00:49 Dose: 50 mls/hr Insulin Detemir (Levemir) 10 units SC HS [facility] Last Admin: 06/22/17 23:00 Dose: 10 units Insulin Human Regular (Humulin R) 0 units SC ACCU-CHECK [facility] PRN Reason: Protocol Last Admin: 06/23/17 06:58 Dose: Not Given Lisinopril (Zestril) 2.5 mg PO DAILY [facility] Last Admin: 06/22/17 09:39 Dose: 2.5 mg Metformin HCl (Glucophage) 1,000 mg PO BID [facility] Last Admin: 06/22/17 18:30 Dose: 1,000 mg Potassium Chloride (K-Dur 20 Meq Er Tab) 20 meq PO BID [facility] Last Admin: 06/22/17 18:31 Dose: 20 meq Pravastatin Sodium (Pravachol) 20 mg PO DAILY [facility] Last Admin: 06/22/17 09:38 Dose: 20 mg Promethazine HCl (Phenergan Syrup) 6.25 mg PO Q6 PRN PRN Reason: Cough Last Admin: 06/22/17 21:46 Dose: 6.25 mg - Labs Labs: 06/22/17 04:20 06/22/17 04:20 - Constitutional Appears: No Acute Distress - Respiratory Exam Respiratory Exam: Rales (at left base) - Cardiovascular Exam Cardiovascular Exam: REGULAR RHYTHM. absent: Murmur Assessment and Plan - Assessment and Plan (Free Text) Assessment: acute community acquired pneumonia diabetes Plan: continue iv antibiotics, zosyn, zithromax and clindamycin pulmo and ID follow up regarding discharge plan
[2017-06-23] MEDS: Acetylcysteine 10% 4 ML IH SCH ×4 (08:01→15:41)
[2017-06-23] MEDS: Piperacillin/Tazobact 3.375 GM in Sodium Chloride 0.9% 100 ML IVPB SCH ×2 (09:55→15:28)
[2017-06-23] MEDS: GlipiZIDE 10 mg SR Tab PO SCH ×2 (09:58→17:28)
[2017-06-23] MEDS: Azithromycin 500 MG in Sodium Chloride 0.9% 250 ML IVPB SCH (10:05)
[2017-06-23] MEDS: Pravastatin Sodium 20 MG TAB PO SCH (10:07)
[2017-06-23] MEDS: Potassium Chloride 20 mEq ER Tab PO SCH ×2 (10:08→17:28)
[2017-06-23] MEDS: guaiFENesin 600 mg ER Tab PO SCH ×2 (10:08→21:33)
--- NOTE | 2017-06-23 13:37 | CT ---
PROCEDURE: CT Chest without contrast HISTORY: follow up pneumonia COMPARISON: 06/18/2017 CT of the chest TECHNIQUE: Contiguous axial images were obtained through the chest without intravenous contrast enhancement. Sagittal and coronal reconstructions were performed. Radiation dose (DLP): 520 mGy-cm. This CT exam was performed using one or more of the following dose reduction techniques: Automated exposure control, adjustment of the mA and/or kV according to patient size, and/or use of iterative reconstruction technique. FINDINGS: LUNGS: There is increasing alveolar consolidation in both lower lobes. There is also an increase in the patchy upper lobe infiltrates seen bilaterally along the major fissures and in the right upper lobe anteriorly. MEDIASTINUM: Unremarkable thoracic aorta. No aneurysm. Normal sized heart. Main pulmonary artery unremarkable. No vascular congestion. No lymphadenopathy. PLEURA: Small pleural effusions BONES: No fracture. No destructive lesion. UPPER ABDOMEN: The gallbladder is filled with dense stones and sludge OTHER FINDINGS: None. IMPRESSION: Increasing bilateral pneumonia
[2017-06-23] MEDS ORDERED: Promethazine/Cod 6.25mg-10mg/5ml Syr UD PO PRN (13:53)
[2017-06-23] MEDS: Promethazine/Cod 6.25mg-10mg/5ml Syr UD PO SCH ×2 (15:28→17:31)
--- NOTE | 2017-06-23 17:31 | CP.PCM.PN ---
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 HAVE D/HARDIK CLINDAMYCIN AND STARTED VANCOMYCIN WILL RE EVALUATE TOMORROW Objective - Vital Signs/Intake and Output Vital Signs (last 24 hours): Temp Pulse Resp BP Pulse Ox 98.0 F 82 19 138/69 94 L 06/23/17 16:38 06/23/17 16:38 06/23/17 16:38 06/23/17 16:38 06/23/17 16:38 - Medications Medications: Current Medications Acetaminophen (Tylenol 325mg Tab) 650 mg PO Q6 PRN PRN Reason: Pain, moderate (4-7) Last Admin: 06/19/17 22:10 Dose: 650 mg Acetaminophen (Tylenol 325mg Tab) 325 mg PO Q6 PRN PRN Reason: temp 100.4 and above Acetylcysteine (Mucomyst 10% 4ml) 3 ml IH Q8 [facility] Last Admin: 06/23/17 15:41 Dose: 3 ml Albuterol Sulfate (Albuterol 0.083% Inhal Claire (2.5 Mg/3 Ml) Ud) 2.5 mg INH RQ4 [facility] Last Admin: 06/23/17 15:41 Dose: 2.5 mg Dicyclomine HCl (Bentyl) 20 mg PO BID PRN PRN Reason: Pain, moderate (4-7) Last Admin: 06/19/17 08:55 Dose: 20 mg Glipizide (Glucotrol Xl) 10 mg PO BIDWM [facility] Last Admin: 06/23/17 09:58 Dose: 10 mg Guaifenesin (Mucinex La) 600 mg PO Q12 [facility] Last Admin: 06/23/17 10:08 Dose: 600 mg Heparin Sodium (Porcine) (Heparin) 5,000 units SC Q12 [facility] PRN Reason: Protocol Last Admin: 06/23/17 09:58 Dose: 5,000 units Piperacillin Sod/Tazobactam (Sod 3.375 gm/ Sodium Chloride) 100 mls @ 100 mls/ hr IVPB Q8H [facility] PRN Reason: Protocol Last Admin: 06/23/17 15:28 Dose: 100 mls/hr Vancomycin HCl 1 gm/ Sodium (Chloride) 250 mls @ 166.667 mls/hr IVPB Q12@0330, 1530 [facility] PRN Reason: Protocol Insulin Detemir (Levemir) 10 units SC HS [facility] Last Admin: 06/22/17 23:00 Dose: 10 units Insulin Human Regular (Humulin R) 0 units SC ACCU-CHECK [facility] PRN Reason: Protocol Last Admin: 06/23/17 12:00 Dose: 3 unit Lisinopril (Zestril) 2.5 mg PO DAILY [facility] Last Admin: 06/23/17 10:06 Dose: 2.5 mg Metformin HCl (Glucophage) 1,000 mg PO BID [facility] Last Admin: 06/23/17 09:57 Dose: 1,000 mg Potassium Chloride (K-Dur 20 Meq Er Tab) 20 meq PO BID [facility] Last Admin: 06/23/17 10:08 Dose: 20 meq Pravastatin Sodium (Pravachol) 20 mg PO DAILY [facility] Last Admin: 06/23/17 10:07 Dose: 20 mg Promethazine HCl/Codeine (Phenergan/Codeine Oral Syrup) 10 ml PO Q8 [facility] Last Admin: 06/23/17 15:28 Dose: 10 ml - Labs Labs: 06/22/17 04:20 06/22/17 04:20
--- NOTE | 2017-06-23 18:15 | CP.PCM.PN ---
Subjective - Date & Time of Evaluation Date of Evaluation: 06/23/17 Time of Evaluation: 13:40 - Subjective Subjective: Cough Paroxysmal "dry", no SOB , no Chest congestion , no GRANADOS Objective - Vital Signs/Intake and Output Vital Signs (last 24 hours): Temp Pulse Resp BP Pulse Ox 98.0 F 82 19 138/69 94 L 06/23/17 16:38 06/23/17 16:38 06/23/17 16:38 06/23/17 16:38 06/23/17 16:38 - Medications Medications: Current Medications Acetaminophen (Tylenol 325mg Tab) 650 mg PO Q6 PRN PRN Reason: Pain, moderate (4-7) Last Admin: 06/19/17 22:10 Dose: 650 mg Acetaminophen (Tylenol 325mg Tab) 325 mg PO Q6 PRN PRN Reason: temp 100.4 and above Acetylcysteine (Mucomyst 10% 4ml) 3 ml IH Q8 [facility] Last Admin: 06/23/17 15:41 Dose: 3 ml Albuterol Sulfate (Albuterol 0.083% Inhal Claire (2.5 Mg/3 Ml) Ud) 2.5 mg INH RQ4 [facility] Last Admin: 06/23/17 15:41 Dose: 2.5 mg Dicyclomine HCl (Bentyl) 20 mg PO BID PRN PRN Reason: Pain, moderate (4-7) Last Admin: 06/19/17 08:55 Dose: 20 mg Glipizide (Glucotrol Xl) 10 mg PO BIDWM [facility] Last Admin: 06/23/17 17:28 Dose: 10 mg Guaifenesin (Mucinex La) 600 mg PO Q12 [facility] Last Admin: 06/23/17 10:08 Dose: 600 mg Heparin Sodium (Porcine) (Heparin) 5,000 units SC Q12 [facility] PRN Reason: Protocol Last Admin: 06/23/17 09:58 Dose: 5,000 units Piperacillin Sod/Tazobactam (Sod 3.375 gm/ Sodium Chloride) 100 mls @ 100 mls/ hr IVPB Q8H [facility] PRN Reason: Protocol Last Admin: 06/23/17 15:28 Dose: 100 mls/hr Vancomycin HCl 1 gm/ Sodium (Chloride) 250 mls @ 166.667 mls/hr IVPB Q12@0330, 1530 [facility] PRN Reason: Protocol Last Admin: 06/23/17 17:27 Dose: 166.667 mls/hr Insulin Detemir (Levemir) 10 units SC HS [facility] Last Admin: 06/22/17 23:00 Dose: 10 units Insulin Human Regular (Humulin R) 0 units SC ACCU-CHECK [facility] PRN Reason: Protocol Last Admin: 06/23/17 17:29 Dose: 2 unit Lisinopril (Zestril) 2.5 mg PO DAILY [facility] Last Admin: 06/23/17 10:06 Dose: 2.5 mg Metformin HCl (Glucophage) 1,000 mg PO BID [facility] Last Admin: 06/23/17 17:29 Dose: 1,000 mg Potassium Chloride (K-Dur 20 Meq Er Tab) 20 meq PO BID [facility] Last Admin: 06/23/17 17:28 Dose: 20 meq Pravastatin Sodium (Pravachol) 20 mg PO DAILY [facility] Last Admin: 06/23/17 10:07 Dose: 20 mg Promethazine HCl/Codeine (Phenergan/Codeine Oral Syrup) 10 ml PO Q8 [facility] Last Admin: 06/23/17 17:31 Dose: 10 ml - Labs Labs: 06/22/17 04:20 06/22/17 04:20 - Constitutional Appears: No Acute Distress - Head Exam Head Exam: NORMAL INSPECTION - Eye Exam Eye Exam: PERRL - ENT Exam ENT Exam: Normal Exam - Neck Exam Neck Exam: Normal Inspection - Respiratory Exam Respiratory Exam: Decreased Breath Sounds (at bases), Rales (few crackles at bases) - Cardiovascular Exam Cardiovascular Exam: REGULAR RHYTHM - GI/Abdominal Exam GI & Abdominal Exam: Soft, Normal Bowel Sounds - Extremities Exam Extremities Exam: Normal Inspection - Back Exam Back Exam: NORMAL INSPECTION - Neurological Exam Neurological Exam: Alert, Oriented x3. absent: Motor Sensory Deficit - Psychiatric Exam Psychiatric exam: Normal Affect, Normal Mood - Skin Skin Exam: Warm Assessment and Plan (1) CAP (community acquired pneumonia) Status: Acute (2) Sepsis Status: Acute - Assessment and Plan (Free Text) Plan: CT Chest increasing bilateral Pneumonia, Sputum Staph Aureus, f/u with ID Atb cooverage, may need Bronchoscopy, continue DuoNeb , Mucomyst , Humibid , Prometh with Codeine.
[2017-06-23] MEDS: Insulin Detemir 100 Units/ml Inj SC SCH (21:34)
[2017-06-24] MEDS: Piperacillin/Tazobact 3.375 GM in Sodium Chloride 0.9% 100 ML IVPB SCH ×4 (00:07→23:06)
[2017-06-24] MEDS: Promethazine/Cod 6.25mg-10mg/5ml Syr UD PO SCH ×3 (00:07→17:25)
[2017-06-24] MEDS: Albuterol 0.083% Inhal Sol (2.5 mg/3 mL) UD INH SCH ×6 (00:10→19:14)
[2017-06-24] MEDS: Acetylcysteine 10% 4 ML IH SCH ×3 (00:10→16:02)
[2017-06-24] MEDS: Insulin Regular 100 units/ml SC SCH ×4 (06:46→22:07)
--- NOTE | 2017-06-24 08:13 | CP.PCM.PN ---
Subjective - Date & Time of Evaluation Date of Evaluation: 06/24/17 Time of Evaluation: 08:11 - Subjective Subjective: still coughing whitish sputum no fever no shortness of breath no nausea no diarrhea Objective - Vital Signs/Intake and Output Vital Signs (last 24 hours): Temp Pulse Resp BP Pulse Ox 98.3 F 80 18 152/76 H 93 L 06/24/17 08:00 06/24/17 08:00 06/24/17 08:00 06/24/17 08:00 06/24/17 08:00 Intake and Output: 06/24/17 06/24/17 06:59 18:59 Output Total 600 Balance -600 - Medications Medications: Current Medications Acetaminophen (Tylenol 325mg Tab) 650 mg PO Q6 PRN PRN Reason: Pain, moderate (4-7) Last Admin: 06/19/17 22:10 Dose: 650 mg Acetaminophen (Tylenol 325mg Tab) 325 mg PO Q6 PRN PRN Reason: temp 100.4 and above Acetylcysteine (Mucomyst 10% 4ml) 3 ml IH Q8 [facility] Last Admin: 06/24/17 00:10 Dose: 3 ml Albuterol Sulfate (Albuterol 0.083% Inhal Claire (2.5 Mg/3 Ml) Ud) 2.5 mg INH RQ4 [facility] Last Admin: 06/24/17 05:00 Dose: 2.5 mg Dicyclomine HCl (Bentyl) 20 mg PO BID PRN PRN Reason: Pain, moderate (4-7) Last Admin: 06/19/17 08:55 Dose: 20 mg Glipizide (Glucotrol Xl) 10 mg PO BIDWM [facility] Last Admin: 06/23/17 17:28 Dose: 10 mg Guaifenesin (Mucinex La) 600 mg PO Q12 [facility] Last Admin: 06/23/17 21:33 Dose: 600 mg Heparin Sodium (Porcine) (Heparin) 5,000 units SC Q12 [facility] PRN Reason: Protocol Last Admin: 06/23/17 21:33 Dose: 5,000 units Piperacillin Sod/Tazobactam (Sod 3.375 gm/ Sodium Chloride) 100 mls @ 100 mls/ hr IVPB Q8H [facility] PRN Reason: Protocol Last Admin: 06/24/17 00:07 Dose: 100 mls/hr Vancomycin HCl 1 gm/ Sodium (Chloride) 250 mls @ 166.667 mls/hr IVPB Q12@0330, 1530 [facility] PRN Reason: Protocol Last Admin: 06/24/17 04:03 Dose: 166.667 mls/hr Insulin Detemir (Levemir) 10 units SC HS [facility] Last Admin: 06/23/17 21:34 Dose: 10 units Insulin Human Regular (Humulin R) 0 units SC ACCU-CHECK [facility] PRN Reason: Protocol Last Admin: 06/24/17 06:46 Dose: Not Given Lisinopril (Zestril) 2.5 mg PO DAILY [facility] Last Admin: 06/23/17 10:06 Dose: 2.5 mg Metformin HCl (Glucophage) 1,000 mg PO BID [facility] Last Admin: 06/23/17 17:29 Dose: 1,000 mg Potassium Chloride (K-Dur 20 Meq Er Tab) 20 meq PO BID [facility] Last Admin: 06/23/17 17:28 Dose: 20 meq Pravastatin Sodium (Pravachol) 20 mg PO DAILY [facility] Last Admin: 06/23/17 10:07 Dose: 20 mg Promethazine HCl/Codeine (Phenergan/Codeine Oral Syrup) 10 ml PO Q8 [facility] Last Admin: 06/24/17 00:07 Dose: 10 ml - Labs Labs: 06/22/17 04:20 06/22/17 04:20 - Constitutional Appears: No Acute Distress - Respiratory Exam Respiratory Exam: Rales (at right base), NORMAL BREATHING PATTERN - Cardiovascular Exam Cardiovascular Exam: REGULAR RHYTHM. absent: Tachycardia, Murmur Assessment and Plan - Assessment and Plan (Free Text) Assessment: bilateral pneumonia as per a follow up CT yesterday, worsening and increasing pneumonia patient on iv zosyn, zithromax antibiotics, respiratory treatment CT showed incidental findings of gallstones. diabetes Plan: continue iv antibiotics chest PT follow up with ID and pulmonology
[2017-06-24] MEDS: Potassium Chloride 20 mEq ER Tab PO SCH ×2 (09:53→17:26)
[2017-06-24] MEDS: guaiFENesin 600 mg ER Tab PO SCH ×2 (09:53→21:05)
[2017-06-24] MEDS: GlipiZIDE 10 mg SR Tab PO SCH ×2 (09:53→17:26)
[2017-06-24] MEDS: Pravastatin Sodium 20 MG TAB PO SCH (09:54)
--- NOTE | 2017-06-24 14:10 | RAD ---
HISTORY: Assess for radiopaque gallstones COMPARISON: No prior. FINDINGS: BOWEL: Normal. No obstruction. No free air. Moderate amount stool seen throughout the cecum and at ascending colon suggesting mild fecal retention. No evidence of acute mechanical bowel obstruction. No gross free air seen on this limited supine view. BONES: Mild multilevel degenerative spondylosis of the lumbar and to a lesser degree lower thoracic spine OTHER FINDINGS: No definitive abnormal calcifications are seen. IMPRESSION: Findings suggest mild fecal retention/ constipation. No obvious abnormal calcifications seen. .
--- NOTE | 2017-06-24 19:23 | CP.PCM.PN ---
Subjective - Date & Time of Evaluation Date of Evaluation: 06/24/17 Time of Evaluation: 18:00 - Subjective Subjective: F/u CAP Cough "dry" paroxismal , no SOB , no GRANADOS Objective - Vital Signs/Intake and Output Vital Signs (last 24 hours): Temp Pulse Resp BP Pulse Ox 98 F 83 20 159/78 H 97 06/24/17 17:00 06/24/17 17:00 06/24/17 17:00 06/24/17 17:00 06/24/17 17:00 - Medications Medications: Current Medications Acetaminophen (Tylenol 325mg Tab) 650 mg PO Q6 PRN PRN Reason: Pain, moderate (4-7) Last Admin: 06/24/17 10:06 Dose: 650 mg Acetaminophen (Tylenol 325mg Tab) 325 mg PO Q6 PRN PRN Reason: temp 100.4 and above Acetylcysteine (Mucomyst 10% 4ml) 3 ml IH Q8 [facility] Last Admin: 06/24/17 16:02 Dose: 3 ml Albuterol Sulfate (Albuterol 0.083% Inhal Claire (2.5 Mg/3 Ml) Ud) 2.5 mg INH RQ4 [facility] Last Admin: 06/24/17 19:14 Dose: 2.5 mg Dicyclomine HCl (Bentyl) 20 mg PO BID PRN PRN Reason: Pain, moderate (4-7) Last Admin: 06/19/17 08:55 Dose: 20 mg Glipizide (Glucotrol Xl) 10 mg PO BIDWM [facility] Last Admin: 06/24/17 17:26 Dose: 10 mg Guaifenesin (Mucinex La) 600 mg PO Q12 [facility] Last Admin: 06/24/17 09:53 Dose: 600 mg Heparin Sodium (Porcine) (Heparin) 5,000 units SC Q12 [facility] PRN Reason: Protocol Last Admin: 06/24/17 09:53 Dose: 5,000 units Piperacillin Sod/Tazobactam (Sod 3.375 gm/ Sodium Chloride) 100 mls @ 100 mls/ hr IVPB Q8H [facility] PRN Reason: Protocol Last Admin: 06/24/17 17:34 Dose: 100 mls/hr Vancomycin HCl 1 gm/ Sodium (Chloride) 250 mls @ 166.667 mls/hr IVPB Q12@0330, 1530 [facility] PRN Reason: Protocol Last Admin: 06/24/17 17:28 Dose: 166.667 mls/hr Insulin Detemir (Levemir) 10 units SC HS [facility] Last Admin: 06/23/17 21:34 Dose: 10 units Insulin Human Regular (Humulin R) 0 units SC ACCU-CHECK [facility] PRN Reason: Protocol Last Admin: 06/24/17 17:27 Dose: 2 unit Lisinopril (Zestril) 2.5 mg PO DAILY [facility] Last Admin: 06/24/17 09:54 Dose: 2.5 mg Metformin HCl (Glucophage) 1,000 mg PO BID [facility] Last Admin: 06/24/17 17:26 Dose: 1,000 mg Potassium Chloride (K-Dur 20 Meq Er Tab) 20 meq PO BID [facility] Last Admin: 06/24/17 17:26 Dose: 20 meq Pravastatin Sodium (Pravachol) 20 mg PO DAILY [facility] Last Admin: 06/24/17 09:54 Dose: 20 mg Promethazine HCl/Codeine (Phenergan/Codeine Oral Syrup) 10 ml PO Q8 [facility] Last Admin: 06/24/17 17:25 Dose: 10 ml - Labs Labs: 06/22/17 04:20 06/22/17 04:20 - Constitutional Appears: No Acute Distress - Head Exam Head Exam: NORMAL INSPECTION - Eye Exam Eye Exam: PERRL - ENT Exam ENT Exam: Normal Exam - Neck Exam Neck Exam: Normal Inspection - Respiratory Exam Respiratory Exam: Decreased Breath Sounds (at bases), Rales (Few crackles at bases), Wheezes (scattered lower lobes) - Cardiovascular Exam Cardiovascular Exam: REGULAR RHYTHM - GI/Abdominal Exam GI & Abdominal Exam: Soft, Normal Bowel Sounds - Extremities Exam Extremities Exam: Normal Inspection - Back Exam Back Exam: NORMAL INSPECTION - Neurological Exam Neurological Exam: Alert, Oriented x3. absent: Motor Sensory Deficit - Psychiatric Exam Psychiatric exam: Normal Affect, Normal Mood - Skin Skin Exam: Warm Assessment and Plan (1) CAP (community acquired pneumonia) Status: Acute (2) Sepsis Status: Acute - Assessment and Plan (Free Text) Plan: CT Chest worsening Pneumonia , continue Vanco , Merren , DuoNeb , Mucomyst , to have Bronchoscopy
[2017-06-24] MEDS: Insulin Detemir 100 Units/ml Inj SC SCH (22:06)
[2017-06-25] MEDS: Acetylcysteine 10% 4 ML IH SCH ×3 (00:11→15:49)
[2017-06-25] MEDS: Albuterol 0.083% Inhal Sol (2.5 mg/3 mL) UD INH SCH ×6 (00:11→19:19)
[2017-06-25] MEDS: Promethazine/Cod 6.25mg-10mg/5ml Syr UD PO SCH ×3 (00:59→19:44)
[2017-06-25] MEDS: Insulin Regular 100 units/ml SC SCH ×4 (06:43→23:00)
[2017-06-25] MEDS: Piperacillin/Tazobact 3.375 GM in Sodium Chloride 0.9% 100 ML IVPB SCH ×2 (06:45→16:39)
[2017-06-25 06:53] LABS: BASO # 0.1 K/uL (0.0-0.2); BASO % 0.7 % (0.0-2.0); EOS # 0.2 K/uL (0.0-0.7); EOS % 1.5 % (0.0-4.0); LYMPH # 1.2 K/uL (1.0-4.3); LYMPH % 10.7 % (20.0-40.0); MEAN CORPUSCULAR HEMOGLOBIN 30.4 pg (27.0-31.0); MEAN CORPUSCULAR HGB CONC 33.8 g/dL (33.0-37.0); MEAN PLATELET VOLUME 8.8 fl (7.2-11.7); MONO # 1.2 K/uL (0.0-0.8); MONO % 10.6 % (0.0-10.0); NEUT # 8.6 K/uL (1.8-7.0); NEUT % 76.5 % (50.0-75.0); RED CELL DISTRIBUTION WIDTH 12.9 % (11.5-14.5); WHITE BLOOD COUNT 11.3 K/uL (4.8-10.8)
[2017-06-25 07:01] LABS: ALB/GLOB RATIO 0.9 (1.0-2.1); ALKALINE PHOSPHATASE 218 U/L (38-126); ALT/SGPT 67 U/L (21-72); AST/SGOT 43 U/L (17-59); BILIRUBIN,TOTAL 0.4 mg/dl (0.2-1.3); BLOOD UREA NITROGEN 10 mg/dl (9-20); CALCIUM 8.7 mg/dL (8.4-10.2); CARBON DIOXIDE 27 mmol/L (22-30); CHLORIDE 102 mmol/L (98-107); GFR AFRICAN-AMERICAN > 60; GLUCOSE,RANDOM 202 mg/dL (75-110); POTASSIUM 4.3 MMOL/L (3.6-5.0); SODIUM 136 mmol/l (132-148); TOTAL PROTEIN 6.9 G/DL (6.3-8.2)
[2017-06-25 07:16] LABS: PARTIAL THROMBOPLASTIN TIME 30.7 Seconds (25.6-37.1)
[2017-06-25] MEDS: Potassium Chloride 20 mEq ER Tab PO SCH ×2 (08:35→17:30)
[2017-06-25] MEDS: guaiFENesin 600 mg ER Tab PO SCH ×2 (08:35→21:09)
[2017-06-25] MEDS: Pravastatin Sodium 20 MG TAB PO SCH (08:36)
[2017-06-25] MEDS: GlipiZIDE 10 mg SR Tab PO SCH ×2 (08:37→18:00)
--- NOTE | 2017-06-25 14:44 | CP.PCM.PN ---
Subjective - Date & Time of Evaluation Date of Evaluation: 06/25/17 Time of Evaluation: 10:10 - Subjective Subjective: F/U CAP Cough improved, No paroxysmal dry, at times small amount of scanty yellowish phlegms, c/o of severe pain in L shoulder at times . Objective - Vital Signs/Intake and Output Vital Signs (last 24 hours): Temp Pulse Resp BP Pulse Ox 98.2 F 97 H 18 171/82 H 93 L 06/25/17 12:53 06/25/17 12:53 06/25/17 12:53 06/25/17 12:53 06/25/17 12:53 - Medications Medications: Current Medications Acetaminophen (Tylenol 325mg Tab) 650 mg PO Q6 PRN PRN Reason: Pain, moderate (4-7) Last Admin: 06/24/17 21:04 Dose: 650 mg Acetaminophen (Tylenol 325mg Tab) 325 mg PO Q6 PRN PRN Reason: temp 100.4 and above Acetylcysteine (Mucomyst 10% 4ml) 3 ml IH Q8 [facility] Last Admin: 06/25/17 08:00 Dose: 3 ml Albuterol Sulfate (Albuterol 0.083% Inhal Claire (2.5 Mg/3 Ml) Ud) 2.5 mg INH RQ4 [facility] Last Admin: 06/25/17 11:16 Dose: 2.5 mg Dicyclomine HCl (Bentyl) 20 mg PO BID PRN PRN Reason: Pain, moderate (4-7) Last Admin: 06/25/17 01:01 Dose: 20 mg Glipizide (Glucotrol Xl) 10 mg PO BIDWM [facility] Last Admin: 06/25/17 08:37 Dose: 10 mg Guaifenesin (Mucinex La) 600 mg PO Q12 [facility] Last Admin: 06/25/17 08:35 Dose: 600 mg Heparin Sodium (Porcine) (Heparin) 5,000 units SC Q12 [facility] PRN Reason: Protocol Last Admin: 06/25/17 08:37 Dose: 5,000 units Piperacillin Sod/Tazobactam (Sod 3.375 gm/ Sodium Chloride) 100 mls @ 100 mls/ hr IVPB Q8H [facility] PRN Reason: Protocol Last Admin: 06/25/17 06:45 Dose: 100 mls/hr Vancomycin HCl 1 gm/ Sodium (Chloride) 250 mls @ 166.667 mls/hr IVPB Q12@0330, 1530 [facility] PRN Reason: Protocol Last Admin: 06/25/17 04:06 Dose: 166.667 mls/hr Insulin Detemir (Levemir) 10 units SC [facility] Last Admin: 06/24/17 22:06 Dose: 10 units Insulin Human Regular (Humulin R) 0 units SC ACCU-CHECK [facility] PRN Reason: Protocol Last Admin: 06/25/17 12:57 Dose: 4 unit Lisinopril (Zestril) 2.5 mg PO DAILY [facility] Last Admin: 06/25/17 08:36 Dose: 2.5 mg Metformin HCl (Glucophage) 1,000 mg PO BID [facility] Last Admin: 06/25/17 08:34 Dose: 1,000 mg Potassium Chloride (K-Dur 20 Meq Er Tab) 20 meq PO BID [facility] Last Admin: 06/25/17 08:35 Dose: 20 meq Pravastatin Sodium (Pravachol) 20 mg PO DAILY [facility] Last Admin: 06/25/17 08:36 Dose: 20 mg Promethazine HCl/Codeine (Phenergan/Codeine Oral Syrup) 10 ml PO Q8 [facility] Last Admin: 06/25/17 08:42 Dose: 10 ml Tramadol HCl (Ultram) 50 mg PO TID PRN PRN Reason: Pain, severe (8-10) Last Admin: 06/25/17 13:58 Dose: 50 mg - Labs Labs: 06/25/17 05:30 06/25/17 05:30 PT 12.3 Seconds (9.8-13.1) 06/25/17 05:30 INR 1.1 (0.9-1.2) 06/25/17 05:30 APTT 30.7 Seconds (25.6-37.1) 06/25/17 05:30 - Constitutional Appears: No Acute Distress - Head Exam Head Exam: NORMAL INSPECTION - Eye Exam Eye Exam: PERRL - ENT Exam ENT Exam: Normal Exam - Neck Exam Neck Exam: Normal Inspection - Respiratory Exam Respiratory Exam: Decreased Breath Sounds (at bases) Additional comments: Crackles at the bases - Cardiovascular Exam Cardiovascular Exam: REGULAR RHYTHM - GI/Abdominal Exam GI & Abdominal Exam: Soft, Normal Bowel Sounds - Extremities Exam Extremities Exam: Tenderness (L shoulder with decreased ROM.) - Back Exam Back Exam: NORMAL INSPECTION - Neurological Exam Neurological Exam: Alert, Oriented x3. absent: Motor Sensory Deficit - Psychiatric Exam Psychiatric exam: Normal Affect, Normal Mood - Skin Skin Exam: Warm Assessment and Plan (1) CAP (community acquired pneumonia) Status: Acute (2) Sepsis Status: Acute - Assessment and Plan (Free Text) Plan: Bronchoscopy in AM, continue current Tx.
--- NOTE | 2017-06-25 18:12 | RAD ---
PROCEDURE: Radiographs of the Left Shoulder HISTORY: Left shoulder pain COMPARISON: No prior. FINDINGS: BONES: No evidence of acute displaced fracture or dislocation. 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 There are small calcifications also seen within the mid and superior margin of the AC joint itself. SOFT TISSUES: No evidence of radiopaque foreign bodies or subcutaneous emphysema OTHER FINDINGS: None. IMPRESSION: No evidence of acute displaced fracture nor dislocation. Mild DJD left acromioclavicular joint.
--- NOTE | 2017-06-25 21:06 | CARD ---
APPROVED REPORT EKG Measurement Heart [id number] <Conclusion> Normal sinus rhythm Normal ECG
[2017-06-25] MEDS: Insulin Detemir 100 Units/ml Inj SC SCH (21:13)
--- NOTE | 2017-06-25 21:51 | CP.PCM.PN ---
Subjective - Date & Time of Evaluation Date of Evaluation: 06/25/17 Time of Evaluation: 21:49 - Subjective Subjective: left shoulder pain today sudden onset cough Objective - Vital Signs/Intake and Output Vital Signs (last 24 hours): Temp Pulse Resp BP Pulse Ox 98.8 F 94 H 20 135/76 95 06/25/17 19:35 06/25/17 19:35 06/25/17 19:35 06/25/17 19:35 06/25/17 19:35 Intake and Output: 06/25/17 06/26/17 18:59 06:59 Intake Total 1550 Output Total 1 Balance 1549 - Medications Medications: Current Medications Acetaminophen (Tylenol 325mg Tab) 650 mg PO Q6 PRN PRN Reason: Pain, moderate (4-7) Last Admin: 06/24/17 21:04 Dose: 650 mg Acetaminophen (Tylenol 325mg Tab) 325 mg PO Q6 PRN PRN Reason: temp 100.4 and above Acetylcysteine (Mucomyst 10% 4ml) 3 ml IH Q8 [facility] Last Admin: 06/25/17 15:49 Dose: 3 ml Albuterol Sulfate (Albuterol 0.083% Inhal Claire (2.5 Mg/3 Ml) Ud) 2.5 mg INH RQ4 [facility] Last Admin: 06/25/17 19:19 Dose: 2.5 mg Dicyclomine HCl (Bentyl) 20 mg PO BID PRN PRN Reason: Pain, moderate (4-7) Last Admin: 06/25/17 01:01 Dose: 20 mg Glipizide (Glucotrol Xl) 10 mg PO BIDWM [facility] Last Admin: 06/25/17 18:00 Dose: 10 mg Guaifenesin (Mucinex La) 600 mg PO Q12 [facility] Last Admin: 06/25/17 21:09 Dose: 600 mg Heparin Sodium (Porcine) (Heparin) 5,000 units SC Q12 [facility] PRN Reason: Protocol Last Admin: 06/25/17 21:09 Dose: 5,000 units Vancomycin HCl 1 gm/ Sodium (Chloride) 250 mls @ 166.667 mls/hr IVPB Q12@0330, 1530 [facility] PRN Reason: Protocol Last Admin: 06/25/17 16:40 Dose: 166.667 mls/hr Insulin Detemir (Levemir) 10 units SC [facility] Last Admin: 06/25/17 21:13 Dose: 10 units Insulin Human Regular (Humulin R) 0 units SC ACCU-CHECK [facility] PRN Reason: Protocol Last Admin: 06/25/17 16:40 Dose: 2 unit Lisinopril (Zestril) 2.5 mg PO DAILY [facility] Last Admin: 06/25/17 08:36 Dose: 2.5 mg Metformin HCl (Glucophage) 1,000 mg PO BID [facility] Last Admin: 06/25/17 17:00 Dose: 1,000 mg Potassium Chloride (K-Dur 20 Meq Er Tab) 20 meq PO BID [facility] Last Admin: 06/25/17 17:30 Dose: 20 meq Pravastatin Sodium (Pravachol) 20 mg PO DAILY [facility] Last Admin: 06/25/17 08:36 Dose: 20 mg Promethazine HCl/Codeine (Phenergan/Codeine Oral Syrup) 10 ml PO Q8 [facility] Last Admin: 06/25/17 19:44 Dose: 10 ml Tramadol HCl (Ultram) 50 mg PO TID PRN PRN Reason: Pain, severe (8-10) Last Admin: 06/25/17 13:58 Dose: 50 mg - Labs Labs: 06/25/17 05:30 06/25/17 05:30 PT 12.3 Seconds (9.8-13.1) 06/25/17 05:30 INR 1.1 (0.9-1.2) 06/25/17 05:30 APTT 30.7 Seconds (25.6-37.1) 06/25/17 05:30 - Respiratory Exam Respiratory Exam: Rales (at right base) - Cardiovascular Exam Cardiovascular Exam: REGULAR RHYTHM. absent: Murmur Assessment and Plan - Assessment and Plan (Free Text) Assessment: CAP, acute, bilateral lower diabetes left shouldr X-ray: degenerative disease EKG: normal sinus rhythm Plan: continue iv antibiotics as per pulmo, bronchoscopy
[2017-06-26] MEDS: Albuterol 0.083% Inhal Sol (2.5 mg/3 mL) UD INH SCH ×7 (00:06→23:49)
[2017-06-26] MEDS: Acetylcysteine 10% 4 ML IH SCH ×3 (00:07→19:40)
[2017-06-26] MEDS: Promethazine/Cod 6.25mg-10mg/5ml Syr UD PO SCH ×3 (00:52→17:13)
[2017-06-26] MEDS: Insulin Regular 100 units/ml SC SCH ×3 (07:04→17:18)
--- NOTE | 2017-06-26 07:56 | CP.PCM.PN ---
Subjective - Date & Time of Evaluation Date of Evaluation: 06/26/17 Time of Evaluation: 07:54 - Subjective Subjective: left shoulder pain no fever less cough Objective - Vital Signs/Intake and Output Vital Signs (last 24 hours): Temp Pulse Resp BP Pulse Ox 97.8 F 89 20 131/75 94 L 06/26/17 05:00 06/26/17 05:00 06/26/17 05:00 06/26/17 05:00 06/26/17 05:00 Intake and Output: 06/26/17 06/26/17 06:59 18:59 Intake Total 1550 Output Total 1 Balance 1549 - Medications Medications: Current Medications Acetaminophen (Tylenol 325mg Tab) 650 mg PO Q6 PRN PRN Reason: Pain, moderate (4-7) Last Admin: 06/24/17 21:04 Dose: 650 mg Acetaminophen (Tylenol 325mg Tab) 325 mg PO Q6 PRN PRN Reason: temp 100.4 and above Acetylcysteine (Mucomyst 10% 4ml) 3 ml IH Q8 [facility] Last Admin: 06/26/17 00:07 Dose: Not Given Albuterol Sulfate (Albuterol 0.083% Inhal Claire (2.5 Mg/3 Ml) Ud) 2.5 mg INH RQ4 [facility] Last Admin: 06/26/17 04:56 Dose: 2.5 mg Dicyclomine HCl (Bentyl) 20 mg PO BID PRN PRN Reason: Pain, moderate (4-7) Last Admin: 06/25/17 01:01 Dose: 20 mg Glipizide (Glucotrol Xl) 10 mg PO BIDWM [facility] Last Admin: 06/25/17 18:00 Dose: 10 mg Guaifenesin (Mucinex La) 600 mg PO Q12 [facility] Last Admin: 06/25/17 21:09 Dose: 600 mg Heparin Sodium (Porcine) (Heparin) 5,000 units SC Q12 [facility] PRN Reason: Protocol Last Admin: 06/25/17 21:09 Dose: 5,000 units Vancomycin HCl 1 gm/ Sodium (Chloride) 250 mls @ 166.667 mls/hr IVPB Q12@0330, 1530 [facility] PRN Reason: Protocol Last Admin: 06/26/17 03:33 Dose: 166.667 mls/hr Insulin Detemir (Levemir) 10 units SC [facility] Last Admin: 06/25/17 21:13 Dose: 10 units Insulin Human Regular (Humulin R) 0 units SC ACCU-CHECK [facility] PRN Reason: Protocol Last Admin: 06/26/17 07:04 Dose: 2 unit Lisinopril (Zestril) 2.5 mg PO DAILY [facility] Last Admin: 06/25/17 08:36 Dose: 2.5 mg Metformin HCl (Glucophage) 1,000 mg PO BID [facility] Last Admin: 06/25/17 17:00 Dose: 1,000 mg Potassium Chloride (K-Dur 20 Meq Er Tab) 20 meq PO BID [facility] Last Admin: 06/25/17 17:30 Dose: 20 meq Pravastatin Sodium (Pravachol) 20 mg PO DAILY [facility] Last Admin: 06/25/17 08:36 Dose: 20 mg Promethazine HCl/Codeine (Phenergan/Codeine Oral Syrup) 10 ml PO Q8 [facility] Last Admin: 06/26/17 00:52 Dose: 10 ml Tramadol HCl (Ultram) 50 mg PO TID PRN PRN Reason: Pain, severe (8-10) Last Admin: 06/25/17 13:58 Dose: 50 mg - Labs Labs: 06/25/17 05:30 06/25/17 05:30 PT 12.3 Seconds (9.8-13.1) 06/25/17 05:30 INR 1.1 (0.9-1.2) 06/25/17 05:30 APTT 30.7 Seconds (25.6-37.1) 06/25/17 05:30 - Constitutional Appears: No Acute Distress (using a nebulizer now) - Respiratory Exam Respiratory Exam: Decreased Breath Sounds (at bases) - Cardiovascular Exam Cardiovascular Exam: REGULAR RHYTHM. absent: Murmur - Extremities Exam Additional comments: LOM of left shoulder Assessment and Plan - Assessment and Plan (Free Text) Assessment: bilateral pneumonia on vancomycin diabetes left shoulder pain and limitation of motion, X-ray : degenerative changes Plan: continue iv antibiotics pulmo and ID follow up
[2017-06-26] MEDS: GlipiZIDE 10 mg SR Tab PO SCH ×2 (09:05→17:19)
[2017-06-26] MEDS: Potassium Chloride 20 mEq ER Tab PO SCH ×2 (09:05→17:18)
[2017-06-26] MEDS: Pravastatin Sodium 20 MG TAB PO SCH (09:07)
[2017-06-26] MEDS: guaiFENesin 600 mg ER Tab PO SCH ×2 (09:07→21:04)
[2017-06-26] MEDS ORDERED: Magnesium Hydroxide Susp 30 ml UD PO PRN (12:28)
[2017-06-26] MEDS: Piperacillin/Tazobact 3.375 GM in Sodium Chloride 0.9% 100 ML IVPB SCH ×2 (13:13→17:17)
--- NOTE | 2017-06-26 15:35 | CP.PCM.PN ---
Subjective - Date & Time of Evaluation Date of Evaluation: 06/26/17 Time of Evaluation: 12:40 - Subjective Subjective: F/U CAP Less cough today, no SOB but chest congestion, difficulty to bring up phlegms Objective - Vital Signs/Intake and Output Vital Signs (last 24 hours): Temp Pulse Resp BP Pulse Ox 97.8 F 90 18 114/68 92 L 06/26/17 12:28 06/26/17 12:28 06/26/17 12:28 06/26/17 12:28 06/26/17 12:28 Intake and Output: 06/26/17 06/26/17 06:59 18:59 Intake Total 1550 Output Total 1 Balance 1549 - Medications Medications: Current Medications Acetaminophen (Tylenol 325mg Tab) 650 mg PO Q6 PRN PRN Reason: Pain, moderate (4-7) Last Admin: 06/24/17 21:04 Dose: 650 mg Acetaminophen (Tylenol 325mg Tab) 325 mg PO Q6 PRN PRN Reason: temp 100.4 and above Acetylcysteine (Mucomyst 10% 4ml) 3 ml IH Q8 [facility] Last Admin: 06/26/17 09:00 Dose: Not Given Albuterol Sulfate (Albuterol 0.083% Inhal Claire (2.5 Mg/3 Ml) Ud) 2.5 mg INH RQ4 [facility] Last Admin: 06/26/17 11:20 Dose: 2.5 mg Dicyclomine HCl (Bentyl) 20 mg PO BID PRN PRN Reason: Pain, moderate (4-7) Last Admin: 06/25/17 01:01 Dose: 20 mg Glipizide (Glucotrol Xl) 10 mg PO BIDWM [facility] Last Admin: 06/26/17 09:05 Dose: 10 mg Guaifenesin (Mucinex La) 600 mg PO Q12 [facility] Last Admin: 06/26/17 09:07 Dose: 600 mg Heparin Sodium (Porcine) (Heparin) 5,000 units SC Q12 [facility] PRN Reason: Protocol Last Admin: 06/26/17 09:04 Dose: 5,000 units Vancomycin HCl 1 gm/ Sodium (Chloride) 250 mls @ 166.667 mls/hr IVPB Q12@0330, 1530 [facility] PRN Reason: Protocol Last Admin: 06/26/17 03:33 Dose: 166.667 mls/hr Piperacillin Sod/Tazobactam (Sod 3.375 gm/ Sodium Chloride) 100 mls @ 100 mls/ hr IVPB Q8 [facility] PRN Reason: Protocol Last Admin: 06/26/17 13:13 Dose: 100 mls/hr Insulin Detemir (Levemir) 10 units SC [facility] Last Admin: 06/25/17 21:13 Dose: 10 units Insulin Human Regular (Humulin R) 0 units SC ACCU-CHECK [facility] PRN Reason: Protocol Last Admin: 06/26/17 12:45 Dose: 2 unit Lisinopril (Zestril) 2.5 mg PO DAILY [facility] Last Admin: 06/26/17 09:05 Dose: 2.5 mg Magnesium Hydroxide (Milk Of Magnesia) 30 ml PO DAILY PRN PRN Reason: Constipation Metformin HCl (Glucophage) 1,000 mg PO BID [facility] Last Admin: 06/26/17 09:05 Dose: 1,000 mg Potassium Chloride (K-Dur 20 Meq Er Tab) 20 meq PO BID [facility] Last Admin: 06/26/17 09:05 Dose: 20 meq Pravastatin Sodium (Pravachol) 20 mg PO DAILY [facility] Last Admin: 06/26/17 09:07 Dose: 20 mg Promethazine HCl/Codeine (Phenergan/Codeine Oral Syrup) 10 ml PO Q8 [facility] Last Admin: 06/26/17 09:04 Dose: 10 ml Tramadol HCl (Ultram) 50 mg PO TID PRN PRN Reason: Pain, severe (8-10) Last Admin: 06/26/17 09:19 Dose: 50 mg - Labs Labs: 06/25/17 05:30 06/25/17 05:30 PT 12.3 Seconds (9.8-13.1) 06/25/17 05:30 INR 1.1 (0.9-1.2) 06/25/17 05:30 APTT 30.7 Seconds (25.6-37.1) 06/25/17 05:30 - Constitutional Appears: No Acute Distress - Head Exam Head Exam: NORMAL INSPECTION - Eye Exam Eye Exam: PERRL - ENT Exam ENT Exam: Normal Exam - Neck Exam Neck Exam: Normal Inspection - Respiratory Exam Respiratory Exam: Decreased Breath Sounds (at bases) Additional comments: Crackles at bases - Cardiovascular Exam Cardiovascular Exam: REGULAR RHYTHM - GI/Abdominal Exam GI & Abdominal Exam: Soft, Normal Bowel Sounds - Extremities Exam Extremities Exam: Tenderness (L shoulder with decreased ROM) - Back Exam Back Exam: NORMAL INSPECTION - Neurological Exam Neurological Exam: Alert, Oriented x3. absent: Motor Sensory Deficit - Psychiatric Exam Psychiatric exam: Normal Affect, Normal Mood - Skin Skin Exam: Warm Assessment and Plan (1) CAP (community acquired pneumonia) Status: Acute (2) Sepsis Status: Acute - Assessment and Plan (Free Text) Plan: Continue Zosyn, Vanco, rest of Tx. F/U CXR for Bronchoscopy in AM
[2017-06-26] MEDS: Insulin Detemir 100 Units/ml Inj SC SCH (21:04)
[2017-06-27] MEDS: Insulin Regular 100 units/ml SC SCH ×4 (00:35→22:33)
[2017-06-27] MEDS: Piperacillin/Tazobact 3.375 GM in Sodium Chloride 0.9% 100 ML IVPB SCH ×3 (00:37→17:07)
[2017-06-27] MEDS: Promethazine/Cod 6.25mg-10mg/5ml Syr UD PO SCH ×4 (00:42→17:06)
[2017-06-27] MEDS: Acetylcysteine 10% 4 ML IH SCH ×3 (01:32→23:37)
[2017-06-27] MEDS: Albuterol 0.083% Inhal Sol (2.5 mg/3 mL) UD INH SCH ×6 (05:31→23:37)
[2017-06-27 05:59] LABS: MEAN CELL VOLUME 90.5 fl (80.0-94.0); MEAN CORPUSCULAR HEMOGLOBIN 30.5 pg (27.0-31.0); MEAN CORPUSCULAR HGB CONC 33.8 g/dL (33.0-37.0); RED CELL DISTRIBUTION WIDTH 12.6 % (11.5-14.5)
[2017-06-27 06:11] LABS: BLOOD UREA NITROGEN 15 mg/dl (9-20); CALCIUM 8.5 mg/dL (8.4-10.2); CARBON DIOXIDE 27 mmol/L (22-30); CHLORIDE 102 mmol/L (98-107); GFR AFRICAN-AMERICAN > 60; GLUCOSE,RANDOM 149 mg/dL (75-110); POTASSIUM 4.2 MMOL/L (3.6-5.0); SODIUM 136 mmol/l (132-148)
[2017-06-27] MEDS: GlipiZIDE 10 mg SR Tab PO SCH ×2 (09:07→17:08)
[2017-06-27] MEDS: guaiFENesin 600 mg ER Tab PO SCH ×2 (09:07→21:11)
[2017-06-27] MEDS: Pravastatin Sodium 20 MG TAB PO SCH (09:07)
[2017-06-27] MEDS: Potassium Chloride 20 mEq ER Tab PO SCH ×2 (09:07→17:08)
[2017-06-27] MEDS ORDERED: EPINEPHrine 1 mg/ml (1:1000) Inj ONE (11:23)
[2017-06-27] MEDS ORDERED: Lidocaine 1% Inj (20ml) ONE (11:24)
[2017-06-27] MEDS ORDERED: Sodium Chloride 0.9% 20 ML IV ONE (11:24)
[2017-06-27] MEDS ORDERED: Lidocaine 2% Jelly (5 ml) TOP ONE (11:24)
--- NOTE | 2017-06-27 11:35 | RAD ---
HISTORY: Pneumonia COMPARISON: Chest radiographs 06/20/2017. TECHNIQUE: Chest PA and lateral FINDINGS: LUNGS: Bilateral inferior airspace disease appreciated slightly improved at the right and somewhat improved at the medial left base but otherwise unchanged bilaterally. PLEURA: No significant pleural effusion identified. No pneumothorax apparent. CARDIOVASCULAR: Normal. OSSEOUS STRUCTURES: No significant abnormalities. VISUALIZED UPPER ABDOMEN: Normal. OTHER FINDINGS: None. IMPRESSION: Diminishing bilateral infiltrates at the inferior lung zones. No pleural effusion bilaterally.
[2017-06-27] MEDS ORDERED: Phenylephrine 10 mg/ml Inj ONE (12:09)
[2017-06-27] MEDS ORDERED: Midazolam 2 MG/2 ML VIAL ONE (12:17)
[2017-06-27] MEDS ORDERED: Propofol 10 mg/ml Inj (20 ML) ONE (12:17)
[2017-06-27] MEDS ORDERED: Lactated Ringer's 1,000 ML IV ONE (12:24)
--- NOTE | 2017-06-27 13:59 | RAD ---
HISTORY: s/p bronchoscopy COMPARISON: Chest radiographs 06/30/2014, 5:37 a.m.. FINDINGS: LUNGS: Limited patchy infiltrates identified in the inferior lung zones bilaterally which are unchanged remain somewhat greater the left and right in overall volume. PLEURA: No significant pleural effusion identified, no pneumothorax apparent. CARDIOVASCULAR: Normal. OSSEOUS STRUCTURES: No significant abnormalities. VISUALIZED UPPER ABDOMEN: Left hemidiaphragm is borderline elevated. OTHER FINDINGS: None. IMPRESSION: Bilateral basilar infiltrates remain mild but persist. No new interval findings bilaterally.
--- NOTE | 2017-06-27 14:09 | RAD ---
PROCEDURE: Intraoperative Fluoroscopy. HISTORY: BRONCHOSCOPY FINDINGS: Fluoroscopic assistance was provided for bronchoscopy. Please refer fluoroscopy time was utilized with a cumulative dose of 20.07 mGy.
--- NOTE | 2017-06-27 15:57 | CP.PCM.PN ---
Objective - Vital Signs/Intake and Output Vital Signs (last 24 hours): Temp Pulse Resp BP Pulse Ox 98.2 F 81 18 127/72 95 06/27/17 14:40 06/27/17 14:40 06/27/17 14:40 06/27/17 14:40 06/27/17 14:40 Intake and Output: 06/27/17 06/27/17 06:59 18:59 Intake Total 200 Balance 200 - Medications Medications: Current Medications Acetaminophen (Tylenol 325mg Tab) 650 mg PO Q6 PRN PRN Reason: Pain, moderate (4-7) Last Admin: 06/24/17 21:04 Dose: 650 mg Acetaminophen (Tylenol 325mg Tab) 325 mg PO Q6 PRN PRN Reason: temp 100.4 and above Acetylcysteine (Mucomyst 10% 4ml) 3 ml IH Q8 [facility] Last Admin: 06/27/17 13:29 Dose: Not Given Albuterol Sulfate (Albuterol 0.083% Inhal Claire (2.5 Mg/3 Ml) Ud) 2.5 mg INH RQ4 [facility] Last Admin: 06/27/17 15:55 Dose: 2.5 mg Dicyclomine HCl (Bentyl) 20 mg PO BID PRN PRN Reason: Pain, moderate (4-7) Last Admin: 06/25/17 01:01 Dose: 20 mg Glipizide (Glucotrol Xl) 10 mg PO BIDWM [facility] Last Admin: 06/27/17 09:07 Dose: Not Given Guaifenesin (Mucinex La) 600 mg PO Q12 [facility] Last Admin: 06/27/17 09:07 Dose: Not Given Heparin Sodium (Porcine) (Heparin) 5,000 units SC Q12 [facility] PRN Reason: Protocol Last Admin: 06/27/17 09:12 Dose: Not Given Vancomycin HCl 1 gm/ Sodium (Chloride) 250 mls @ 166.667 mls/hr IVPB Q12@0330, 1530 [facility] PRN Reason: Protocol Last Admin: 06/27/17 04:48 Dose: 166.667 mls/hr Piperacillin Sod/Tazobactam (Sod 3.375 gm/ Sodium Chloride) 100 mls @ 100 mls/ hr IVPB Q8 [facility] PRN Reason: Protocol Last Admin: 06/27/17 09:14 Dose: 100 mls/hr Insulin Detemir (Levemir) 10 units SC [facility] Last Admin: 06/26/17 21:04 Dose: 10 units Insulin Human Regular (Humulin R) 0 units SC ACCU-CHECK [facility] PRN Reason: Protocol Last Admin: 06/27/17 09:00 Dose: Not Given Lisinopril (Zestril) 2.5 mg PO DAILY [facility] Last Admin: 06/27/17 09:08 Dose: Not Given Magnesium Hydroxide (Milk Of Magnesia) 30 ml PO DAILY PRN PRN Reason: Constipation Metformin HCl (Glucophage) 1,000 mg PO BID [facility] Last Admin: 06/27/17 09:07 Dose: Not Given Potassium Chloride (K-Dur 20 Meq Er Tab) 20 meq PO BID [facility] Last Admin: 06/27/17 09:07 Dose: Not Given Pravastatin Sodium (Pravachol) 20 mg PO DAILY [facility] Last Admin: 06/27/17 09:07 Dose: Not Given Promethazine HCl/Codeine (Phenergan/Codeine Oral Syrup) 10 ml PO Q8 [facility] Last Admin: 06/27/17 09:07 Dose: Not Given Tramadol HCl (Ultram) 50 mg PO TID PRN PRN Reason: Pain, severe (8-10) Last Admin: 06/26/17 17:13 Dose: 50 mg - Labs Labs: 06/27/17 04:25 06/27/17 04:25 PT 12.3 Seconds (9.8-13.1) 06/25/17 05:30 INR 1.1 (0.9-1.2) 06/25/17 05:30 APTT 30.7 Seconds (25.6-37.1) 06/25/17 05:30 Assessment and Plan (1) CAP (community acquired pneumonia) Status: Acute (2) Sepsis Status: Acute
--- NOTE | 2017-06-27 15:58 | CP.PCM.PN ---
Subjective - Date & Time of Evaluation Date of Evaluation: 06/27/17 Time of Evaluation: 12:00 - Subjective Subjective: F/U CAP Pt Awake, less cough, minimal chest congestion. Objective - Vital Signs/Intake and Output Vital Signs (last 24 hours): Temp Pulse Resp BP Pulse Ox 98.2 F 81 18 127/72 95 06/27/17 14:40 06/27/17 14:40 06/27/17 14:40 06/27/17 14:40 06/27/17 14:40 Intake and Output: 06/27/17 06/27/17 06:59 18:59 Intake Total 200 Balance 200 - Medications Medications: Current Medications Acetaminophen (Tylenol 325mg Tab) 650 mg PO Q6 PRN PRN Reason: Pain, moderate (4-7) Last Admin: 06/24/17 21:04 Dose: 650 mg Acetaminophen (Tylenol 325mg Tab) 325 mg PO Q6 PRN PRN Reason: temp 100.4 and above Acetylcysteine (Mucomyst 10% 4ml) 3 ml IH Q8 [facility] Last Admin: 06/27/17 13:29 Dose: Not Given Albuterol Sulfate (Albuterol 0.083% Inhal Claire (2.5 Mg/3 Ml) Ud) 2.5 mg INH RQ4 [facility] Last Admin: 06/27/17 15:55 Dose: 2.5 mg Dicyclomine HCl (Bentyl) 20 mg PO BID PRN PRN Reason: Pain, moderate (4-7) Last Admin: 06/25/17 01:01 Dose: 20 mg Glipizide (Glucotrol Xl) 10 mg PO BIDWM [facility] Last Admin: 06/27/17 09:07 Dose: Not Given Guaifenesin (Mucinex La) 600 mg PO Q12 [facility] Last Admin: 06/27/17 09:07 Dose: Not Given Heparin Sodium (Porcine) (Heparin) 5,000 units SC Q12 [facility] PRN Reason: Protocol Last Admin: 06/27/17 09:12 Dose: Not Given Vancomycin HCl 1 gm/ Sodium (Chloride) 250 mls @ 166.667 mls/hr IVPB Q12@0330, 1530 [facility] PRN Reason: Protocol Last Admin: 06/27/17 04:48 Dose: 166.667 mls/hr Piperacillin Sod/Tazobactam (Sod 3.375 gm/ Sodium Chloride) 100 mls @ 100 mls/ hr IVPB Q8 [facility] PRN Reason: Protocol Last Admin: 06/27/17 09:14 Dose: 100 mls/hr Insulin Detemir (Levemir) 10 units SC [facility] Last Admin: 06/26/17 21:04 Dose: 10 units Insulin Human Regular (Humulin R) 0 units SC ACCU-CHECK [facility] PRN Reason: Protocol Last Admin: 06/27/17 09:00 Dose: Not Given Lisinopril (Zestril) 2.5 mg PO DAILY [facility] Last Admin: 06/27/17 09:08 Dose: Not Given Magnesium Hydroxide (Milk Of Magnesia) 30 ml PO DAILY PRN PRN Reason: Constipation Metformin HCl (Glucophage) 1,000 mg PO BID [facility] Last Admin: 06/27/17 09:07 Dose: Not Given Potassium Chloride (K-Dur 20 Meq Er Tab) 20 meq PO BID [facility] Last Admin: 06/27/17 09:07 Dose: Not Given Pravastatin Sodium (Pravachol) 20 mg PO DAILY [facility] Last Admin: 06/27/17 09:07 Dose: Not Given Promethazine HCl/Codeine (Phenergan/Codeine Oral Syrup) 10 ml PO Q8 [facility] Last Admin: 06/27/17 09:07 Dose: Not Given Tramadol HCl (Ultram) 50 mg PO TID PRN PRN Reason: Pain, severe (8-10) Last Admin: 06/26/17 17:13 Dose: 50 mg - Labs Labs: 06/27/17 04:25 06/27/17 04:25 PT 12.3 Seconds (9.8-13.1) 06/25/17 05:30 INR 1.1 (0.9-1.2) 06/25/17 05:30 APTT 30.7 Seconds (25.6-37.1) 06/25/17 05:30 - Constitutional Appears: No Acute Distress - Head Exam Head Exam: NORMAL INSPECTION - Eye Exam Eye Exam: PERRL - ENT Exam ENT Exam: Normal Exam - Neck Exam Neck Exam: Normal Inspection - Respiratory Exam Respiratory Exam: Decreased Breath Sounds (at bases. Crackles at bases) - Cardiovascular Exam Cardiovascular Exam: REGULAR RHYTHM - GI/Abdominal Exam GI & Abdominal Exam: Soft, Normal Bowel Sounds - Extremities Exam Extremities Exam: Tenderness (L shoulder with decreased ROM) - Back Exam Back Exam: NORMAL INSPECTION - Neurological Exam Neurological Exam: Alert, Oriented x3. absent: Motor Sensory Deficit - Psychiatric Exam Psychiatric exam: Normal Affect, Normal Mood - Skin Skin Exam: Warm Assessment and Plan (1) CAP (community acquired pneumonia) Status: Acute (2) Sepsis Status: Acute - Assessment and Plan (Free Text) Plan: CXR from yesterday showed diminished lower lobes infiltrates, no pleural effusion b/l. For Bronchoscopy today. Bronchoscopy 06-27-17 report : Pre-Op Dx Unresolving Pneumonia Bronchoscopy was done in the Endoscopy room, after topical anesthesia bronchoscope was introduced in the R nasal cavity ,turbinates were swollen , then bronchoscope was introduced in the L nasal cavity , turbinates were less swollen, Bronchoscope was advanced trough the Nasopharynx , then Oropharynx , the Epiglottis was mobile and in the midline , then bronchoscope was advanced , the vocal cords were mobile with no pathology, the subglottic area normal. Ethel was sharp, all airways Trachea, R L main stem bronchi L lung YOLI , LLL , R lung RUL , RML , RLL the mucosa with increase hyperemia , vessel engorgement , there was yellowish secretion R main stem , RLL basal segments that was aspirated, then under fluoroscopy guide transbronchial Bx's were taken segments RLL along with washings , there was minimal bleeding that subsided spontaneously , then the Bronchoscope was withdrawn Post-Op Dx : same as Pre-Op Complications : none At the end of the procedure Patient was in stable condition , the Bx's and washings were forwarded to Lab and Pathology
--- NOTE | 2017-06-27 19:06 | CP.PCM.PN ---
Subjective - Date & Time of Evaluation Date of Evaluation: 06/27/17 Time of Evaluation: 19:04 - Subjective Subjective: cough getting better a little pain on left shoulder no fever Objective - Vital Signs/Intake and Output Vital Signs (last 24 hours): Temp Pulse Resp BP Pulse Ox 97.3 F L 84 16 147/76 94 L 06/27/17 16:26 06/27/17 16:26 06/27/17 16:26 06/27/17 16:26 06/27/17 16:26 Intake and Output: 06/27/17 06/28/17 18:59 06:59 Intake Total 950 Balance 950 - Medications Medications: Current Medications Acetaminophen (Tylenol 325mg Tab) 650 mg PO Q6 PRN PRN Reason: Pain, moderate (4-7) Last Admin: 06/24/17 21:04 Dose: 650 mg Acetaminophen (Tylenol 325mg Tab) 325 mg PO Q6 PRN PRN Reason: temp 100.4 and above Acetylcysteine (Mucomyst 10% 4ml) 3 ml IH Q8 [facility] Last Admin: 06/27/17 13:29 Dose: Not Given Albuterol Sulfate (Albuterol 0.083% Inhal Claire (2.5 Mg/3 Ml) Ud) 2.5 mg INH RQ4 [facility] Last Admin: 06/27/17 15:55 Dose: 2.5 mg Dicyclomine HCl (Bentyl) 20 mg PO BID PRN PRN Reason: Pain, moderate (4-7) Last Admin: 06/25/17 01:01 Dose: 20 mg Glipizide (Glucotrol Xl) 10 mg PO BIDWM [facility] Last Admin: 06/27/17 17:08 Dose: 10 mg Guaifenesin (Mucinex La) 600 mg PO Q12 [facility] Last Admin: 06/27/17 09:07 Dose: Not Given Heparin Sodium (Porcine) (Heparin) 5,000 units SC Q12 [facility] PRN Reason: Protocol Last Admin: 06/27/17 09:12 Dose: Not Given Vancomycin HCl 1 gm/ Sodium (Chloride) 250 mls @ 166.667 mls/hr IVPB Q12@0330, 1530 [facility] PRN Reason: Protocol Last Admin: 06/27/17 17:07 Dose: 166.667 mls/hr Piperacillin Sod/Tazobactam (Sod 3.375 gm/ Sodium Chloride) 100 mls @ 100 mls/ hr IVPB Q8 [facility] PRN Reason: Protocol Last Admin: 06/27/17 17:07 Dose: 100 mls/hr Insulin Detemir (Levemir) 10 units SC [facility] Last Admin: 06/26/17 21:04 Dose: 10 units Insulin Human Regular (Humulin R) 0 units SC ACCU-CHECK [facility] PRN Reason: Protocol Last Admin: 06/27/17 17:01 Dose: Not Given Lisinopril (Zestril) 2.5 mg PO DAILY [facility] Last Admin: 06/27/17 09:08 Dose: Not Given Magnesium Hydroxide (Milk Of Magnesia) 30 ml PO DAILY PRN PRN Reason: Constipation Metformin HCl (Glucophage) 1,000 mg PO BID [facility] Last Admin: 06/27/17 17:08 Dose: 1,000 mg Potassium Chloride (K-Dur 20 Meq Er Tab) 20 meq PO BID [facility] Last Admin: 06/27/17 17:08 Dose: 20 meq Pravastatin Sodium (Pravachol) 20 mg PO DAILY [facility] Last Admin: 06/27/17 09:07 Dose: Not Given Promethazine HCl/Codeine (Phenergan/Codeine Oral Syrup) 10 ml PO Q8 [facility] Last Admin: 06/27/17 17:06 Dose: 10 ml Tramadol HCl (Ultram) 50 mg PO TID PRN PRN Reason: Pain, severe (8-10) Last Admin: 06/26/17 17:13 Dose: 50 mg - Labs Labs: 06/27/17 04:25 06/27/17 04:25 PT 12.3 Seconds (9.8-13.1) 06/25/17 05:30 INR 1.1 (0.9-1.2) 06/25/17 05:30 APTT 30.7 Seconds (25.6-37.1) 06/25/17 05:30 - Constitutional Appears: No Acute Distress - Respiratory Exam Respiratory Exam: Decreased Breath Sounds (at bases), NORMAL BREATHING PATTERN - Cardiovascular Exam Cardiovascular Exam: REGULAR RHYTHM. absent: Murmur - GI/Abdominal Exam GI & Abdominal Exam: Soft. absent: Tenderness Assessment and Plan - Assessment and Plan (Free Text) Assessment: bilateral pneumonia atelectasis ? today bronchoscopy was done a follow up chest X-ray showed still bilateral infiltrates, more on left side glycemia - controlled sepsis - resolving Plan: continue iv vancomycin respiratory treatment chest PT D/C planning
[2017-06-27] MEDS: Insulin Detemir 100 Units/ml Inj SC SCH (22:32)
[2017-06-28] MEDS: Piperacillin/Tazobact 3.375 GM in Sodium Chloride 0.9% 100 ML IVPB SCH ×2 (01:08→08:42)
[2017-06-28] MEDS: Promethazine/Cod 6.25mg-10mg/5ml Syr UD PO SCH ×2 (01:09→08:47)
[2017-06-28] MEDS: Acetylcysteine 10% 4 ML IH SCH ×2 (01:09→07:51)
[2017-06-28] MEDS: Albuterol 0.083% Inhal Sol (2.5 mg/3 mL) UD INH SCH ×3 (05:22→11:08)
[2017-06-28] MEDS: Insulin Regular 100 units/ml SC SCH (06:21)
--- NOTE | 2017-06-28 07:27 | CP.PCM.PN ---
Subjective - Date & Time of Evaluation Date of Evaluation: 06/28/17 Time of Evaluation: 07:25 - Subjective Subjective: less cough no fever bronchoscopy yesterday less pain on left shoulder Objective - Vital Signs/Intake and Output Vital Signs (last 24 hours): Temp Pulse Resp BP Pulse Ox 98.8 F 82 20 143/78 97 06/28/17 05:25 06/28/17 05:25 06/28/17 05:25 06/28/17 05:25 06/28/17 05:25 Intake and Output: 06/28/17 06/28/17 06:59 18:59 Intake Total 350 Output Total 1200 Balance -850 - Medications Medications: Current Medications Acetaminophen (Tylenol 325mg Tab) 650 mg PO Q6 PRN PRN Reason: Pain, moderate (4-7) Last Admin: 06/24/17 21:04 Dose: 650 mg Acetaminophen (Tylenol 325mg Tab) 325 mg PO Q6 PRN PRN Reason: temp 100.4 and above Acetylcysteine (Mucomyst 10% 4ml) 3 ml IH Q8 [facility] Last Admin: 06/28/17 01:09 Dose: Not Given Albuterol Sulfate (Albuterol 0.083% Inhal Claire (2.5 Mg/3 Ml) Ud) 2.5 mg INH RQ4 [facility] Last Admin: 06/28/17 05:22 Dose: 2.5 mg Dicyclomine HCl (Bentyl) 20 mg PO BID PRN PRN Reason: Pain, moderate (4-7) Last Admin: 06/25/17 01:01 Dose: 20 mg Glipizide (Glucotrol Xl) 10 mg PO BIDWM [facility] Last Admin: 06/27/17 17:08 Dose: 10 mg Guaifenesin (Mucinex La) 600 mg PO Q12 [facility] Last Admin: 06/27/17 21:11 Dose: 600 mg Heparin Sodium (Porcine) (Heparin) 5,000 units SC Q12 [facility] PRN Reason: Protocol Last Admin: 06/27/17 21:09 Dose: 5,000 units Vancomycin HCl 1 gm/ Sodium (Chloride) 250 mls @ 166.667 mls/hr IVPB Q12@0330, 1530 [facility] PRN Reason: Protocol Last Admin: 06/28/17 03:23 Dose: 166.667 mls/hr Piperacillin Sod/Tazobactam (Sod 3.375 gm/ Sodium Chloride) 100 mls @ 100 mls/ hr IVPB Q8 [facility] PRN Reason: Protocol Last Admin: 06/28/17 01:08 Dose: 100 mls/hr Insulin Detemir (Levemir) 10 units SC [facility] Last Admin: 06/27/17 22:32 Dose: 10 units Insulin Human Regular (Humulin R) 0 units SC ACCU-CHECK [facility] PRN Reason: Protocol Last Admin: 06/28/17 06:21 Dose: Not Given Lisinopril (Zestril) 2.5 mg PO DAILY [facility] Last Admin: 06/27/17 09:08 Dose: Not Given Magnesium Hydroxide (Milk Of Magnesia) 30 ml PO DAILY PRN PRN Reason: Constipation Metformin HCl (Glucophage) 1,000 mg PO BID [facility] Last Admin: 06/27/17 17:08 Dose: 1,000 mg Potassium Chloride (K-Dur 20 Meq Er Tab) 20 meq PO BID [facility] Last Admin: 06/27/17 17:08 Dose: 20 meq Pravastatin Sodium (Pravachol) 20 mg PO DAILY [facility] Last Admin: 06/27/17 09:07 Dose: Not Given Promethazine HCl/Codeine (Phenergan/Codeine Oral Syrup) 10 ml PO Q8 [facility] Last Admin: 06/28/17 01:09 Dose: Not Given Tramadol HCl (Ultram) 50 mg PO TID PRN PRN Reason: Pain, severe (8-10) Last Admin: 06/26/17 17:13 Dose: 50 mg - Labs Labs: 06/27/17 04:25 06/27/17 04:25 PT 12.3 Seconds (9.8-13.1) 06/25/17 05:30 INR 1.1 (0.9-1.2) 06/25/17 05:30 APTT 30.7 Seconds (25.6-37.1) 06/25/17 05:30 - Constitutional Appears: No Acute Distress - Respiratory Exam Respiratory Exam: Clear to Ausculation Bilateral, NORMAL BREATHING PATTERN. absent: Rales - Cardiovascular Exam Cardiovascular Exam: REGULAR RHYTHM. absent: Murmur Assessment and Plan - Assessment and Plan (Free Text) Assessment: acute CAP, resolving on iv vanco sepsis, hyperglycemia Plan: continue iv antibiotics D/C planning
[2017-06-28 07:50] VITALS: RESP 18
[2017-06-28] MEDS: Potassium Chloride 20 mEq ER Tab PO SCH (08:44)
[2017-06-28] MEDS: Pravastatin Sodium 20 MG TAB PO SCH (08:44)
[2017-06-28] MEDS: GlipiZIDE 10 mg SR Tab PO SCH (08:44)
[2017-06-28] MEDS: guaiFENesin 600 mg ER Tab PO SCH (08:44)
--- NOTE | 2017-06-28 11:41 | CP.PCM.PCO ---
Assessment & Plan - Assessment and Plan (Free Text) Assessment: Follow up appointment made with Dr. Bradshaw for june 29 @ 11am pt. cleared for discharge to [facility] today by and Rx for meds provided cont. Zyvox 600 mg po q12 x 5 days cont Bevespi inh q12 pt. will f/u with pmd f/u bronch bx results
[2017-06-28 11:58] VITALS: BP 117/69; PULSE 96; TEMP 98.3; O2SAT 95
--- NOTE | 2017-06-28 16:19 | CP.PCM.PN ---
Subjective - Date & Time of Evaluation Date of Evaluation: 06/28/17 Time of Evaluation: 09:20 - Subjective Subjective: F/U CAP. Cough greatly improved, dry, at times with small amount of yellowish phlegms, no chest congestion, no GRANADOS. Objective - Vital Signs/Intake and Output Vital Signs (last 24 hours): Temp Pulse Resp BP Pulse Ox 98.3 F 96 H 18 117/69 95 06/28/17 11:57 06/28/17 11:57 06/28/17 11:57 06/28/17 11:57 06/28/17 11:57 Intake and Output: 06/28/17 06/28/17 06:59 18:59 Intake Total 350 Output Total 1200 Balance -850 - Medications Medications: Current Medications Acetaminophen (Tylenol 325mg Tab) 650 mg PO Q6 PRN PRN Reason: Pain, moderate (4-7) Last Admin: 06/24/17 21:04 Dose: 650 mg Acetaminophen (Tylenol 325mg Tab) 325 mg PO Q6 PRN PRN Reason: temp 100.4 and above Acetylcysteine (Mucomyst 10% 4ml) 3 ml IH Q8 [facility] Last Admin: 06/28/17 07:51 Dose: Not Given Albuterol Sulfate (Albuterol 0.083% Inhal Claire (2.5 Mg/3 Ml) Ud) 2.5 mg INH RQ4 [facility] Last Admin: 06/28/17 11:08 Dose: 2.5 mg Dicyclomine HCl (Bentyl) 20 mg PO BID PRN PRN Reason: Pain, moderate (4-7) Last Admin: 06/25/17 01:01 Dose: 20 mg Glipizide (Glucotrol Xl) 10 mg PO BIDWM [facility] Last Admin: 06/28/17 08:44 Dose: 10 mg Guaifenesin (Mucinex La) 600 mg PO Q12 [facility] Last Admin: 06/28/17 08:44 Dose: 600 mg Heparin Sodium (Porcine) (Heparin) 5,000 units SC Q12 [facility] PRN Reason: Protocol Last Admin: 06/28/17 08:43 Dose: 5,000 units Vancomycin HCl 1 gm/ Sodium (Chloride) 250 mls @ 166.667 mls/hr IVPB Q12@0330, 1530 [facility] PRN Reason: Protocol Last Admin: 06/28/17 03:23 Dose: 166.667 mls/hr Piperacillin Sod/Tazobactam (Sod 3.375 gm/ Sodium Chloride) 100 mls @ 100 mls/ hr IVPB Q8 [facility] PRN Reason: Protocol Last Admin: 06/28/17 08:42 Dose: 100 mls/hr Insulin Detemir (Levemir) 10 units SC HS [facility] Last Admin: 06/27/17 22:32 Dose: 10 units Insulin Human Regular (Humulin R) 0 units SC ACCU-CHECK DEEJAY PRN Reason: Protocol Last Admin: 06/28/17 06:21 Dose: Not Given Lisinopril (Zestril) 2.5 mg PO DAILY [facility] Last Admin: 06/27/17 09:08 Dose: Not Given Magnesium Hydroxide (Milk Of Magnesia) 30 ml PO DAILY PRN PRN Reason: Constipation Metformin HCl (Glucophage) 1,000 mg PO BID [facility] Last Admin: 06/28/17 08:44 Dose: 1,000 mg Potassium Chloride (K-Dur 20 Meq Er Tab) 20 meq PO BID [facility] Last Admin: 06/28/17 08:44 Dose: 20 meq Pravastatin Sodium (Pravachol) 20 mg PO DAILY [facility] Last Admin: 06/28/17 08:44 Dose: 20 mg Promethazine HCl/Codeine (Phenergan/Codeine Oral Syrup) 10 ml PO Q8 [facility] Last Admin: 06/28/17 08:47 Dose: 10 ml Tramadol HCl (Ultram) 50 mg PO TID PRN PRN Reason: Pain, severe (8-10) Last Admin: 06/26/17 17:13 Dose: 50 mg - Labs Labs: 06/27/17 04:25 06/27/17 04:25 PT 12.3 Seconds (9.8-13.1) 06/25/17 05:30 INR 1.1 (0.9-1.2) 06/25/17 05:30 APTT 30.7 Seconds (25.6-37.1) 06/25/17 05:30 - Constitutional Appears: No Acute Distress - Head Exam Head Exam: NORMAL INSPECTION - Eye Exam Eye Exam: PERRL - ENT Exam ENT Exam: Normal Exam - Neck Exam Neck Exam: Normal Inspection - Respiratory Exam Respiratory Exam: Decreased Breath Sounds ( bases), Rhonchi (few at bases) - Cardiovascular Exam Cardiovascular Exam: REGULAR RHYTHM - GI/Abdominal Exam GI & Abdominal Exam: Soft, Normal Bowel Sounds - Extremities Exam Extremities Exam: Normal Inspection - Back Exam Back Exam: NORMAL INSPECTION - Neurological Exam Neurological Exam: Alert, Oriented x3. absent: Motor Sensory Deficit - Psychiatric Exam Psychiatric exam: Normal Affect, Normal Mood - Skin Skin Exam: Warm Assessment and Plan (1) CAP (community acquired pneumonia) Status: Acute (2) Sepsis Status: Acute - Assessment and Plan (Free Text) Plan: Pt improved and stable, Pulmonary cleared for discharge, continue nebulizer Tx at home.
--- NOTE | 2017-06-29 12:32 | PQF PNEUMO ---
Dr. Herrera pt was admitted with pneumonia. Gram stain came back positive for staphylococcus aureus. Was pt diagnosed and treated for staphylococcus aureus pneumonia? This form is a permanent part of the medical record Clarification of your documentation is requested to better reflect the severity of illness and intensity of treatment of your patient. Indicators present [x] Documented diagnosis of pneumonia [] X-ray findings: [x] Positive Sputum cultures [x] Cough w/ fever [] Abnormal lungs sounds [] Poor gag reflex [] Speech consults/swallow evaluation [] Vent dependence [] Other: [] Location in the medical record that reflects the above clinical findings: [] Treatment Provided: [] PHYSICIAN'S RESPONSE Based on your medical judgment of the clinical indicators outlined above, are you treating this patient for a known or suspected: [] Aspiration pneumonia [x] Community acquired pneumonia [] Ventilator associated pneumonia [] Viral pneumonia [] Bacterial pneumonia Please specify organism: [] [] Other, please indicate [] If Unable to Determine, please check the box, sign and date. Present On Admission (POA) Indicator: [] Present at the time of admission [x] Not present at the time of admission [] Clinically Undetermined In responding to this query, please exercise your independent professional judgment. The fact that a question is asked does not imply that any particular answer is desired or expected. Thank you for your clarification on this documentation. If you have any questions please call:[ ] * Thank you, [ ]Jory LOJA Coder SUKHDEEP
--- NOTE | 2017-07-09 10:58 | CP.PCM.DIS ---
Provider - Provider Date of Admission: 06/17/17 19:07 Attending physician: July Herrera MD Primary care physician: A 72 year old male with history of diabetes, hypertension and elevated cholesterol was admitted for cough, sputum and high fever for the last three days. He had fever and chills. He thought that he had a cold. Sputum color was yellowish. He denies history of asthma. 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 He denies smoking. Chest X-ray showe bilateral infiltration Time Spent in preparation of Discharge (in minutes): 30 Diagnosis - Discharge Diagnosis (1) CAP (community acquired pneumonia) Status: Acute Priority: High (2) Hyperglycemia Status: Acute Hospital Course - Lab Results Lab Results: Micro Results 06/27/17 Unknown Other: Please Indicate Mycobacterial Culture - Preliminary 06/27/17 Unknown Other: Please Indicate Gram Stain - Final 06/27/17 Unknown Other: Please Indicate Body Fluid Culture - Final Staphylococcus Aureus 06/27/17 Unknown Lung Rll Fungal Culture - Preliminary 06/21/17 19:40 Blood Blood Culture - Final NO GROWTH AFTER 5 DAYS 06/21/17 19:40 Blood Gram Stain - Final TEST NOT PERFORMED 06/17/17 18:00 Blood Blood Culture - Final NO GROWTH AFTER 5 DAYS 06/17/17 18:00 Blood Gram Stain - Final TEST NOT PERFORMED 06/17/17 18:15 Blood Blood Culture - Final NO GROWTH AFTER 5 DAYS 06/17/17 18:15 Blood Gram Stain - Final TEST NOT PERFORMED 06/20/17 21:42 Sputum Gram Stain - Final 06/20/17 21:42 Sputum Sputum Culture - Final 06/17/17 19:51 Sputum Gram Stain - Final 06/17/17 19:51 Sputum Sputum Culture - Final Staphylococcus Aureus 06/17/17 18:15 Urine Urine Culture - Final No Growth (<1,000 CFU/ML) Most Recent Lab Values WBC 11.0 K/uL (4.8-10.8) H 06/27/17 04:25 RBC 3.32 Mil/uL (4.40-5.90) L 06/27/17 04:25 Hgb 10.1 g/dL (12.0-18.0) L 06/27/17 04:25 Hct 30.0 % (35.0-51.0) L 06/27/17 04:25 MCV 90.5 fl (80.0-94.0) 06/27/17 04:25 MCH 30.5 pg (27.0-31.0) 06/27/17 04:25 MCHC 33.8 g/dL (33.0-37.0) 06/27/17 04:25 RDW 12.6 % (11.5-14.5) 06/27/17 04:25 Plt Count 507 K/uL (130-400) H 06/27/17 04:25 MPV 8.8 fl (7.2-11.7) 06/25/17 05:30 Neut % (Auto) 76.5 % (50.0-75.0) H 06/25/17 05:30 Lymph % (Auto) 10.7 % (20.0-40.0) L 06/25/17 05:30 [place] % (Auto) 10.6 % (0.0-10.0) H 06/25/17 05:30 Eos % (Auto) 1.5 % (0.0-4.0) 06/25/17 05:30 Baso % (Auto) 0.7 % (0.0-2.0) 06/25/17 05:30 Neut # 8.6 K/uL (1.8-7.0) H 06/25/17 05:30 Lymph # 1.2 K/uL (1.0-4.3) 06/25/17 05:30 [place] # 1.2 K/uL (0.0-0.8) H 06/25/17 05:30 Eos # 0.2 K/uL (0.0-0.7) 06/25/17 05:30 Baso # 0.1 K/uL (0.0-0.2) 06/25/17 05:30 Neutrophils % (Manual) 69 % (42-75) 06/21/17 04:00 Band Neutrophils % 8 % (0-2) H 06/17/17 18:07 Lymphocytes % (Manual) 9 % (20-50) L 06/21/17 04:00 Monocytes % (Manual) 21 % (0-10) H 06/21/17 04:00 Eosinophils % (Manual) 1 % (0-7) 06/21/17 04:00 Toxic Granulation Present 06/21/17 04:00 Platelet Estimate Normal (NORMAL) 06/21/17 04:00 Large Platelets Present 06/17/17 18:07 PT 12.3 Seconds (9.8-13.1) 06/25/17 05:30 INR 1.1 (0.9-1.2) 06/25/17 05:30 APTT 30.7 Seconds (25.6-37.1) 06/25/17 05:30 pO2 41 mm/Hg (30-55) 06/17/17 20:12 VBG pH 7.36 (7.32-7.43) 06/17/17 20:12 VBG pCO2 41 mmHg (40-60) 06/17/17 20:12 VBG HCO3 22.8 mmol/L 06/17/17 20:12 VBG Total CO2 24.5 mmol/L (22-28) 06/17/17 20:12 VBG O2 Sat (Calc) 84.0 % (40-65) H 06/17/17 20:12 VBG Base Excess -2.2 mmol/L (0.0-2.0) L 06/17/17 20:12 VBG Potassium 3.5 mmol/L (3.6-5.2) L 06/17/17 20:12 Sodium 132.0 mmol/L (132-148) 06/17/17 20:12 Chloride 101.0 mmol/L (98-107) 06/17/17 20:12 Glucose 369 mg/dL (75-110) H 06/17/17 20:12 Lactate 2.9 mmol/L (0.7-2.1) H 06/17/17 20:12 FiO2 21.0 % 06/17/17 20:12 Crit Value Called To Dr ion cornejo 06/17/17 17:45 Crit Value Called By Amador 06/17/17 17:45 Crit Value Read Back Y 06/17/17 17:45 Blood Gas Notified Time 1808 06/17/17 17:45 Sodium 136 mmol/l (132-148) 06/27/17 04:25 Potassium 4.2 MMOL/L (3.6-5.0) 06/27/17 04:25 Chloride 102 mmol/L (98-107) 06/27/17 04:25 Carbon Dioxide 27 mmol/L (22-30) 06/27/17 04:25 Anion Gap 10 (10-20) 06/27/17 04:25 BUN 15 mg/dl (9-20) 06/27/17 04:25 Creatinine 1.0 mg/dL (0.8-1.5) 06/27/17 04:25 Est GFR ( Amer) > 60 06/27/17 04:25 Est GFR (Non-Af Amer) > 60 06/27/17 04:25 POC Glucose (mg/dL) 260 mg/dL (65-110) H 06/28/17 11:11 Random Glucose 149 mg/dL (75-110) H 06/27/17 04:25 Hemoglobin A1c 11.8 % (4.2-6.5) H 06/18/17 06:00 Calcium 8.5 mg/dL (8.4-10.2) 06/27/17 04:25 Total Bilirubin 0.4 mg/dl (0.2-1.3) 06/25/17 05:30 AST 43 U/L (17-59) 06/25/17 05:30 ALT 67 U/L (21-72) 06/25/17 05:30 Alkaline Phosphatase 218 U/L (38-126) H 06/25/17 05:30 Total Protein 6.9 G/DL (6.3-8.2) 06/25/17 05:30 Albumin 3.3 g/dL (3.5-5.0) L 06/25/17 05:30 Globulin 3.6 gm/dL (2.2-3.9) 06/25/17 05:30 Albumin/Globulin Ratio 0.9 (1.0-2.1) L 06/25/17 05:30 Venous Blood Potassium 3.5 mmol/L (3.6-5.2) L 06/17/17 20:12 Vancomycin Trough 23.4 ug/mL (5.0-10.0) H 06/28/17 09:15 HIV-1 Ab Rapid Screen Non reactive (NON REAC) 06/23/17 14:45 Influenza Typ A,B (EIA) Negative for flu a/b (NEGATIVE) 06/17/17 18:12 Ur L.pneumophila Ag Negative (NEGATIVE) 06/20/17 07:27 Mycoplasma pneumon IgG 3.22 (<=0.90) H 06/20/17 14:50 Mycoplasma pneumon IgM 199 U/mL (<770) 06/20/17 14:50 - Hospital Course Hospital Course: iv antibiotics sputum culture Staph aureus pulmo and ID consult discharged wit po Augmentin - Date & Time of H&P Date of H&P: 07/09/17 Time of H&P: 10:58 Discharge Exam - Head Exam Head Exam: NORMAL INSPECTION Discharge Plan - Discharge Medications Prescriptions: Glycopyrrolate/Formoterol Fum [Bevespi Aerosphere Inhaler] 10.7 gm IH BID #1 hfa.aer.ad guaiFENesin [Mucinex LA] 600 mg PO Q12 #14 tab Promethazine/Codeine [Phenergan/Codeine Oral Syrup] 10 ml PO Q8 #14 udc Linezolid [Zyvox] 600 mg PO Q12 #10 tab - Follow Up Plan Condition: FAIR Disposition: HOME/ ROUTINE Instructions: Community Acquired Pneumonia (DC) Additional Instructions: [facility] [phone] Follow up appointment made with Dr. Bradshaw for june 29 @ 11am pt. cleared for discharge to [facility] today by and Rx for meds provided cont. Zyvox 600 mg po q12 x 5 days cont Bevespi inh q12 pt. will f/u with pmd Referrals: Shaik Bradshaw MD [Medical Doctor] -
--- NOTE | 2017-07-25 12:15 | BRONCH ---
Bronchoscopy report : Date: 06-27-17 Surgeon: Jose Luis Gauthier MD Anesthesiologist: Lalito JIMÉNEZ, Dora Arriola Anesthetic Type: Local / IV Sedation Pre-Op Dx: Unresolving Pneumonia Description: Bronchoscopy was done in the Endoscopy room, after topical anesthesia bronchoscope was introduced in the R nasal cavity, turbinates were swollen, then bronchoscope was introduced in the L nasal cavity , turbinates were less swollen, Bronchoscope was advanced trough the Nasopharynx , then Oropharynx , the Epiglottis was mobile and in the midline , then bronchoscope was advanced , the vocal cords were mobile with no pathology, the subglottic area normal. Ethle was sharp, all airways Trachea , R L main stem bronchi L lung YOLI , LLL , R lung RUL , RML , RLL the mucosa with increase hyperemia , vessel engorgement , there was yellowish secretion R main stem , RLL basal segments that was aspirated, then under fluoroscopy guide transbronchial Bx's were taken segments RLL along with washings , there was minimal bleeding that subsided spontaneously , then the Bronchoscope was withdrawn Post-Op Dx : same as Pre-Op Complications : none Post-OP Condition: At the end of the procedure Patient was in stable condition , the Bx's and washings were forwarded to Lab and Pathology Disha JIMÉNEZ, Jose Luis TARAGNO
== END 2017-06-28 19:00 | disposition home or self-care (01) | DRG 853 ==
LOC: H.ER 17:07 → H.ERHOLD 19:07 → H.TEL 21:00
PROVIDERS: ADMIT Internal Medicine; ATTEND Internal Medicine
PROC: 3E0234Z Introduction of Serum, Toxoid and Vaccine into Muscle, Percutaneous Approach (ICD-10-PCS; principal; 2017-06-18)
PROC: 0B9F8ZX Drainage of Right Lower Lung Lobe, Via Natural or Artificial Opening Endoscopic, Diagnostic (ICD-10-PCS; 2017-06-27)
PROC: 0BBF8ZX Excision of Right Lower Lung Lobe, Via Natural or Artificial Opening Endoscopic, Diagnostic (ICD-10-PCS; 2017-06-27 12:00)
DX: A41.9 Sepsis, unspecified organism (principal); J18.9 Pneumonia, unspecified organism; E11.65 Type 2 diabetes mellitus with hyperglycemia; E78.00 Pure hypercholesterolemia, unspecified; I10 Essential (primary) hypertension; Z23 Encounter for immunization; M25.512 Pain in left shoulder